=== PATIENT | male | born 1965 | race Caucasian/White ===

== ENCOUNTER → 2017-05-11 | Outpatient (REF) | payer OTHER ==
[~2017-05-11] MED LIST: CLOT10TR MT; LIPI20TA PO; METF500T13 PO
[2017-05-11 11:59] LABS: BASO # 0.1 K/mm3 (0.0-0.2); BASO % 1.1 % (0.0-1.0); EOS # 0.2 K/mm3 (0.0-0.50); EOS % 3.5 % (0.0-3.0); LARGE UNSTAINED CELL # 0.1 K/mm3 (0.0-0.4); LARGE UNSTAINED CELL % 2.3 % (0.0-4.0); LYMPH # 2.2 K/mm3 (1.5-4.5); MEAN CORPUSCULAR HEMOGLOBIN 30.7 pg (27.0-33.0); MEAN CORPUSCULAR HGB CONC 36.2 g/dl (32.0-36.5); MEAN CORPUSCULAR VOLUME 84.9 fl (80.0-96.0); MONO # 0.3 K/mm3 (0.0-0.8); MONO % 4.9 % (0.0-5.0); NEUTROPHILS # 3.2 K/mm3 (1.8-7.7); NEUTROPHILS % 52.3 % (36.0-66.0); PLATELET COUNT, AUTOMATED 177 k/mm3 (150-450); WHITE BLOOD COUNT 6.1 K/mm3 (4.0-10.0)
[2017-05-11 12:28] LABS: ALBUMIN 3.5 GM/DL (3.2-5.2); ALBUMIN/GLOBULIN RATIO 1.09 (1.00-1.93); ALKALINE PHOSPHATASE 79 U/L (45-117); ALT/SGPT 62 U/L (12-78); ANION GAP 9 MEQ/L (8-16); AST/SGOT 26 U/L (15-37); BILIRUBIN,TOTAL 0.3 MG/DL (0.2-1.0); BLOOD UREA NITROGEN 10 MG/DL (7-18); CALCIUM LEVEL 8.1 MG/DL (8.5-10.1); CARBON DIOXIDE LEVEL 27 MEQ/L (21-32); CHLORIDE LEVEL 106 MEQ/L (98-107); CHOLESTEROL LEVEL 196 MG/DL (<200); CREATININE FOR GFR 0.93 MG/DL (0.70-1.30); FREE T4 1.05 NG/DL (0.76-1.46); GLOMERULAR FILTRATION RATE > 60.0 (>56); GLUCOSE, FASTING 129 MG/DL (70-105); POTASSIUM SERUM 4.2 MEQ/L (3.5-5.1); SODIUM LEVEL 142 MEQ/L (136-145); TOTAL PROTEIN 6.7 GM/DL (6.4-8.2); TRIGLYCERIDES LEVEL 104 MG/DL (<150)
== END ==
LOC: M SFHCPLAZ 08:00
PROVIDERS: ATTEND Nurse Practitioner Family
DX: Z00.00 Encounter for general adult medical examination without abnormal findings (principal); Z11.3 Encounter for screening for infections with a predominantly sexual mode of transmission; E66.9 Obesity, unspecified; E78.5 Hyperlipidemia, unspecified; B37.42 Candidal balanitis

== ENCOUNTER → 2017-07-02 | Outpatient (REF) | payer OTHER ==
[2017-07-02 13:03] LABS: ALBUMIN 3.6 GM/DL (3.2-5.2); ALBUMIN/GLOBULIN RATIO 1.09 (1.00-1.93); ALKALINE PHOSPHATASE 92 U/L (45-117); ALT/SGPT 83 U/L (12-78); ANION GAP 6 MEQ/L (8-16); AST/SGOT 30 U/L (7-37); BILIRUBIN,TOTAL 0.4 MG/DL (0.2-1.0); BLOOD UREA NITROGEN 8 MG/DL (7-18); CARBON DIOXIDE LEVEL 30 MEQ/L (21-32); CHLORIDE LEVEL 105 MEQ/L (98-107); CREATININE FOR GFR 0.88 MG/DL (0.70-1.30); GLOMERULAR FILTRATION RATE > 60.0 (>56); GLUCOSE, FASTING 110 MG/DL (70-105); POTASSIUM SERUM 4.3 MEQ/L (3.5-5.1); SODIUM LEVEL 141 MEQ/L (136-145); TOTAL PROTEIN 6.9 GM/DL (6.4-8.2)
== END ==
LOC: M SFHCPLAZ 08:56
PROVIDERS: ATTEND Nurse Practitioner Family
DX: E78.5 Hyperlipidemia, unspecified (principal); E11.9 Type 2 diabetes mellitus without complications

== ENCOUNTER → 2017-10-01 | Outpatient (REF) | payer OTHER ==
[2017-10-01 12:46] LABS: ESTIMATED AVERAGE GLUCOSE 143 MG/DL (60-110); HEMOGLOBIN A1c 6.6 %
[2017-10-01 12:56] LABS: ALBUMIN 3.4 GM/DL (3.2-5.2); ALKALINE PHOSPHATASE 91 U/L (45-117); ALT/SGPT 56 U/L (12-78); ANION GAP 7 MEQ/L (8-16); AST/SGOT 29 U/L (7-37); BILIRUBIN,TOTAL 0.5 MG/DL (0.2-1.0); BLOOD UREA NITROGEN 10 MG/DL (7-18); CALCIUM LEVEL 8.5 MG/DL (8.5-10.1); CARBON DIOXIDE LEVEL 29 MEQ/L (21-32); CHLORIDE LEVEL 104 MEQ/L (98-107); CREATININE FOR GFR 0.98 MG/DL (0.70-1.30); FREE T4 0.93 NG/DL (0.76-1.46); GLOMERULAR FILTRATION RATE > 60.0 (>56); GLUCOSE, FASTING 119 MG/DL (70-100); POTASSIUM SERUM 4.1 MEQ/L (3.5-5.1); SODIUM LEVEL 140 MEQ/L (136-145); TOTAL PROTEIN 6.5 GM/DL (6.4-8.2)
[2017-10-01 13:12] LABS: MALB URINE SIEMENS 8.7 MG/L; MAU/CREAT RATIO 5.2 MCG/MG (0.0-30.0)
[2017-10-03 00:06] LABS: TESTOSTERONE FREE (DIRECT) 8.4 pg/mL (7.2-24.0)
== END ==
LOC: M SFHCPLAZ 08:48
DX: E11.9 Type 2 diabetes mellitus without complications (principal)

== ENCOUNTER → 2018-04-17 | Outpatient (REF) | payer OTHER ==
[2018-04-17 12:49] LABS: ALBUMIN 3.5 GM/DL (3.2-5.2); ALBUMIN/GLOBULIN RATIO 1.06 (1.00-1.93); ALKALINE PHOSPHATASE 90 U/L (45-117); ALT/SGPT 54 U/L (12-78); ANION GAP 10 MEQ/L (8-16); AST/SGOT 29 U/L (7-37); BILIRUBIN,TOTAL 0.4 MG/DL (0.2-1.0); BLOOD UREA NITROGEN 10 MG/DL (7-18); CALCIUM LEVEL 8.6 MG/DL (8.5-10.1); CARBON DIOXIDE LEVEL 27 MEQ/L (21-32); CHLORIDE LEVEL 105 MEQ/L (98-107); CREATININE FOR GFR 0.86 MG/DL (0.70-1.30); GLOMERULAR FILTRATION RATE > 60.0 (>56); GLUCOSE, FASTING 126 MG/DL (70-100); POTASSIUM SERUM 4.3 MEQ/L (3.5-5.1); SODIUM LEVEL 142 MEQ/L (136-145); TOTAL PROTEIN 6.8 GM/DL (6.4-8.2)
[2018-04-17 16:27] LABS: ESTIMATED AVERAGE GLUCOSE 151 MG/DL (60-110); HEMOGLOBIN A1c 6.9 %
== END ==
LOC: M SFHCPLAZ 09:28
DX: E11.9 Type 2 diabetes mellitus without complications (principal); I10 Essential (primary) hypertension
CPT/HCPCS: 80053

== ENCOUNTER → 2018-07-19 | Outpatient (REF) | payer OTHER ==
[2018-07-19 11:05] LABS: ALBUMIN 3.4 GM/DL (3.2-5.2); ALBUMIN/GLOBULIN RATIO 1.06 (1.00-1.93); ALKALINE PHOSPHATASE 93 U/L (45-117); ALT/SGPT 55 U/L (12-78); ANION GAP 9 MEQ/L (8-16); AST/SGOT 23 U/L (7-37); BILIRUBIN,TOTAL 0.6 MG/DL (0.2-1.0); BLOOD UREA NITROGEN 11 MG/DL (7-18); CALCIUM LEVEL 8.2 MG/DL (8.5-10.1); CARBON DIOXIDE LEVEL 28 MEQ/L (21-32); CHLORIDE LEVEL 106 MEQ/L (98-107); CHOLESTEROL LEVEL 154 MG/DL (<200); CHOLESTEROL RISK RATIO 5.133 (<5); CREATININE FOR GFR 1.01 MG/DL (0.70-1.30); GLOMERULAR FILTRATION RATE > 60.0 (>56); GLUCOSE, FASTING 135 MG/DL (70-100); HDL CHOLESTEROL 30 MG/DL (>40); LDL CHOLESTEROL 88 MG/DL (<100); NON-HDL-C 124 MG/DL; POTASSIUM SERUM 4.4 MEQ/L (3.5-5.1); SODIUM LEVEL 143 MEQ/L (136-145); TOTAL PROTEIN 6.6 GM/DL (6.4-8.2); TRIGLYCERIDES LEVEL 181 MG/DL (<150)
[2018-07-19 11:36] LABS: CREATININE, URINE 31.1 MG/DL; MALB URINE SIEMENS < 5.0 MG/L
[2018-07-19 13:18] LABS: ESTIMATED AVERAGE GLUCOSE 143 MG/DL (60-110); HEMOGLOBIN A1c 6.6 %
== END ==
LOC: M SFHCPLAZ 08:56
DX: E11.9 Type 2 diabetes mellitus without complications (principal); E78.5 Hyperlipidemia, unspecified
CPT/HCPCS: 80053

== ENCOUNTER → 2018-10-23 | Outpatient (REF) | payer OTHER ==
[2018-10-23 12:21] LABS: ALBUMIN 3.7 GM/DL (3.2-5.2); ALT/SGPT 45 U/L (12-78); BILIRUBIN,TOTAL 0.4 MG/DL (0.2-1.0); BLOOD UREA NITROGEN 10 MG/DL (7-18); CARBON DIOXIDE LEVEL 28 MEQ/L (21-32); CHLORIDE LEVEL 106 MEQ/L (98-107); CREATININE FOR GFR 0.85 MG/DL (0.70-1.30); GLOMERULAR FILTRATION RATE > 60.0 (>56); GLUCOSE, FASTING 117 MG/DL (70-100); POTASSIUM SERUM 3.8 MEQ/L (3.5-5.1); SODIUM LEVEL 141 MEQ/L (136-145); TOTAL PROTEIN 6.7 GM/DL (6.4-8.2)
[2018-10-23 13:21] LABS: HEMOGLOBIN A1c 6.7 %
== END ==
LOC: M SFHCPLAZ 09:14
PROVIDERS: ATTEND Nurse Practitioner Family
DX: E11.9 Type 2 diabetes mellitus without complications (principal); E78.5 Hyperlipidemia, unspecified

== ENCOUNTER → 2018-10-29 | Outpatient (REF) | payer OTHER ==
[2018-10-29 11:23] LABS: BASO # 0.1 10^3/uL (0.0-0.2); BASO % 0.8 % (0.0-1.0); EOS # 0.2 10^3/uL (0.0-0.50); EOS % 2.6 % (0.0-3.0); HEMATOCRIT 43.2 % (42.0-52.0); HEMOGLOBIN 14.6 g/dl (13.5-17.5); LYMPH # 2.9 10^3/uL (1.5-4.5); LYMPH % 39.6 % (24.0-44.0); MEAN CORPUSCULAR HEMOGLOBIN 28.9 pg (27.0-33.0); MEAN CORPUSCULAR HGB CONC 33.8 g/dl (32.0-36.5); MEAN CORPUSCULAR VOLUME 85.4 fl (80.0-96.0); MONO # 0.4 10^3/uL (0.0-0.8); MONO % 5.7 % (0.0-5.0); NEUTROPHILS # 3.7 10^3/uL (1.8-7.7); PLATELET COUNT, AUTOMATED 189 10^3/uL (150-450); RED BLOOD COUNT 5.06 10^6/uL (4.30-6.10); WHITE BLOOD COUNT 7.2 10^3/uL (4.0-10.0)
[2018-10-29 11:58] LABS: ERYTHROCYTE SEDIMENTATION RATE 9 mm/hr (0-20)
[2018-10-29 14:10] LABS: HEMOGLOBIN A1c 6.6 %
[2018-10-29 15:08] LABS: ALBUMIN 3.7 GM/DL (3.2-5.2); ALT/SGPT 59 U/L (12-78); BILIRUBIN,TOTAL 0.4 MG/DL (0.2-1.0); BLOOD UREA NITROGEN 11 MG/DL (7-18); CALCIUM LEVEL 8.5 MG/DL (8.5-10.1); CARBON DIOXIDE LEVEL 29 MEQ/L (21-32); CHLORIDE LEVEL 108 MEQ/L (98-107); CREATININE FOR GFR 0.91 MG/DL (0.70-1.30); FOLATE 12.8 NG/ML; GLOMERULAR FILTRATION RATE > 60.0 (>56); GLUCOSE, FASTING 112 MG/DL (70-100); POTASSIUM SERUM 3.9 MEQ/L (3.5-5.1); RHEUMATOID FACTOR QUANT < 10.0 IU/ML (<15.0); SODIUM LEVEL 142 MEQ/L (136-145); TOTAL PROTEIN 6.8 GM/DL (6.4-8.2); VITAMIN B12 LEVEL 695 PG/ML
[2018-10-31 11:38] LABS: ALBUMIN 3.92 GM/DL (3.29-5.55); ALBUMIN % 57.7 % (55.8-66.1); ALPHA-1-GLOBULIN % 4.1 % (2.9-4.9); ALPHA-1-GLOBULINS 0.28 GM/DL (0.17-0.41); ALPHA-2-GLOBULINS 0.79 GM/DL (0.42-0.99); ALPHA-2-GLOBULINS % 11.6 % (7.1-11.8); BETA-1-GLOBULINS 0.49 GM/DL (0.28-0.60); BETA-1-GLOBULINS % 7.2 % (4.7-7.2); BETA-2-GLOBULINS 0.43 GM/DL (0.19-0.55)
[2018-10-31 11:39] LABS: BETA-2-GLOBULINS % 6.3 % (3.2-6.5); GAMMA GLOBULIN % 13.1 % (11.1-18.8); GAMMA GLOBULINS 0.89 GM/DL (0.65-1.58)
[2018-11-01 00:10] LABS: ANCA-ATYPICAL <1:20 titer (Neg:<1:20); ANTI DOUBLE STRAND-DNA AB <1 IU/mL (0-9); ANTINUCLEAR ANTIBODIES DIRECT Negative (Negative); CYTOPLASMIC NEUTROP AB ANCA-C <1:20 titer (Neg:<1:20); PERINUCLEAR AB ANCA-P <1:20 titer (Neg:<1:20); SJOGREN'S ANTI SS-A <0.2 AI (0.0-0.9); SJOGREN'S ANTI SS-B <0.2 AI (0.0-0.9)
[2018-11-01 10:25] LABS: VITAMIN E(ALPHA TOCOPHEROL) 8.7 mg/L (7.0-25.1); VITAMIN E(GAMMA TOCOPHEROL) 1.4 mg/L (0.5-5.5)
[2018-11-02 14:37] LABS: VITAMIN B1 LEVEL WHOLE BLOOD 139.1 nmol/L (66.5-200.0); VITAMIN B6,PYRIDOXAL PHOSPHATE 5.3 ug/L (5.3-46.7)
== END ==
LOC: M LABDRAW1 10:44
PROVIDERS: ATTEND Psychiatry & Neurology Neurology
DX: G62.9 Polyneuropathy, unspecified (principal)

== ENCOUNTER → 2019-03-21 | Outpatient (CLI) | payer BC, OTHER ==
--- NOTE | 2019-04-02 01:48 | ECWPNPC ---
PATIENT NAME: MANUEL HODGE : 1965 GENDER: MALE VISIT DATE: 03/21/2019 DISCHARGE DATE: 03/21/19 1148 VISIT LOCKED DATE TIME: PHYSICIAN: JOHNATHAN SHIPLEY MD RESOURCE: JOHNATHAN SHIPLEY MD REASON FOR APPOINTMENT 1. LS/CS SPONDYLOSIS HISTORY OF PRESENT ILLNESS PAIN SCREENING: PATIENT HAS A COMPLAINT OF ACUTE OR CHRONIC PAIN :YES 53 YEAR OLD MALE PATIENT WITH A HISTORY OF CHRONIC LOW BACK, RIGHT HIP, AND RIGHT LEG PAIN. THE PATIENT DESCRIBES THE PAIN ACHING AND CONTINUOUS WITH A PAIN SCORE OF 1-6/10 DEPENDING ON PHYSICAL ACTIVITY. THE PATIENT STATES HIS PAIN BEGINS IN HIS LOW BACK AND RADIATES DOWN MAINLY HIS RIGHT BUTTOCK AND DOWN THE BACK OF HIS RIGHT LEG. THE PATIENT SAYS HE EXPERIENCES NUMBNESS IN HIS RIGHT HIP WHEN HE TAKES SHOWERS. THE PATIENT STATES HE HAS BEEN EXPERIENCING THIS PAIN FOR MANY YEARS. THE PATIENT SAYS HIS PAIN INCREASES WITH ACTIVITIES OFTEN. PATIENT DENIES UNEXPLAINABLE WEIGHT LOSS, FEVER, CHILLS, NEW CHANGES ON HIS URINARY OR BOWEL CONTROL. FALL RISK SCREENING: SCREENING :NO FALLS REPORTED IN THE LAST YEAR CURRENT MEDICATIONS TAKING IBUPROFEN 800 MG TABLET 1 TABLET WITH FOOD OR MILK NEEDED ORALLY THREE TIMES A DAY PRN NOT-TAKING GLUCOMETER _ DIRECTED DX: E11.9 MONITOR BGS IN MORNING NOT-TAKING BLOOD GLUCOSE TEST STRIP - STRIP DIRECTED IN VITRO DAILY. DX: E11.9 NOT-TAKING LANCETS - MISCELLANEOUS DIRECTED _ DAILY. DX: E11.9 NOT-TAKING METFORMIN HCL 1000 MG TABLET 1 TABLET WITH MEALS ORALLY TWICE DAILY NOT-TAKING ASPIRIN 81 MG TABLET DELAYED RELEASE 1 TABLET ORALLY ONCE A DAY NOT-TAKING LOSARTAN POTASSIUM 25 MG TABLET 1 TABLET ORALLY ONCE A DAY NOT-TAKING LIPITOR 40 MG TABLET 1 TABLET ORALLY ONCE A DAY NOT-TAKING LIPITOR 40 MG TABLET TAKE ONE TABLET BY MOUTH EVERY DAY MEDICATION LIST REVIEWED AND RECONCILED WITH THE PATIENT PAST MEDICAL HISTORY HYPERLIPIDEMIA OBESITY HYPERTENSION CHRONIC BACK/NECK PAIN ZULLY W/ CPAP ALLERGIES N.K.D.A. 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 2 SON(S) , 1 DAUGHTER(S) - HEALTHY. FATHER - LUNG CANCER. SOCIAL HISTORY GENERAL: TOBACCO USE ARE YOU A:FORMER SMOKER CHEWS TOBACCO HOW LONG HAS IT BEEN SINCE YOU LAST SMOKED?1-5 YEARS HIV / HEP-C SCREENING HIV TEST OFFERED TO PATIENT:YES DATE OFFERED:03/27/2017 TEST ACCEPTED:NO HEP-C TEST OFFERED TO PATIENT:NO REASON:PATIENT DECLINED OTHERS AT HOME: SPOUSE, CHILDREN. EDUCATION LEVEL OF EDUCATION:FINISHED HIGH SCHOOL DIET: REGULAR. LANGUAGE LANGUAGES SPOKEN:POLISH DOMESTIC VIOLENCE NONE. NEW PATIENT PAIN DIARY PATIENT DESCRIBES PAIN :ACHING, IT COMES AND GOES FROM 0-10, WHAT LEVEL IS YOUR PAIN TODAY?1 PRECIPITATING FACTORS STANDING, LAYING ALLEVIATING FACTORS IBUPROFEN BMI CARE GOAL FOLLOW-UP ABOVE NORMAL BMI FOLLOW-UPDIETARY MANAGEMENT EDUCATION, GUIDANCE, AND COUNSELING -37.6 RECREATIONAL DRUG USE DRUG USE?NO EXERCISE: NONE. LEARNING BARRIERS / SPECIAL NEEDS CHANGE FROM LAST VISIT?YES TRANSFER BARRIERS TO LEARNING?NO HEARING IMPAIRED?YES :HEARING AIDES FOR HIGH PITCH VISION IMPAIRED?YES READING :CORRECTIVE LENSES COGNITIVELY IMPAIRED?NO READINESS TO LEARN?YES LEARNING PREFERENCES?NO LEARNING CAPABILITIES PRESENT?YES EMOTIONAL BARRIERS?NO SPECIAL DEVICES?NO MILLER HELPER NEEDED?NO PAIN CLINIC PFS, CLERGY, PUBLIC HEALTH REFERRALS HAS THE PATIENT BEEN EDUCATED REGARDING HIS/HER PLAN OF CARE?YES HAS THE PATIENT BEEN EDUCATED REGARDING PAIN, THE RISK FOR PAIN, THE IMPORTANCE OF EFFECTIVE PAIN MANAGEMENT, AND THE PAIN ASSESSMENT PROCESS?YES LATEX QUESTIONNAIRE LATEX ALLERGY : HAVE YOU EVER DEVELOPED ANY TYPE OF REACTION AFTER HANDLING LATEX PRODUCTS SUCH RUBBER GLOVES, CONDOMS, DIAPHRAGMS, BALLOONS, SOCKS, OR UNDERWEAR?NO LATEX ALLERGY : HAVE YOU EVER DEVELOPED ANY TYPE OF REACTION DURING OR AFTER DENTAL APPOINTMENT, VAGINAL/RECTAL EXAMINATION, SURGICAL PROCEDURE, OR ANY OTHER EXPOSURE?NO LATEX RISK : HAVE YOU EVER HAD ANY DIFFICULTY BREATHING OR HIVES AFTER EATING OR HANDLING ANY FRUITS, OR VEGETABLES; SUCH KIWI, BANANAS, STONE FRUITS, OR CHESTNUTSNO LATEX RISK : DO YOU HAVE A PREVIOUS PERSONAL HISTORY OF MORE THAN NINE SURGERIES, SPINA BIFIDA, OR REPEATED CATHERIZATIONS? NO LATEX RISK : ARE YOU FREQUENTLY EXPOSED TO LATEX PRODUCTS IN YOUR OCCUPATION?YES DATE ASKED : 03/21/2019 CAFFEINE >5/DAY. ADVANCE DIRECTIVE ADVANCE DIRECTIVE DISCUSSED WITH PATIENT:YES PATIENT DECLINES HCP INFORMATION. LUTHERAN [id number] OTHER MARITAL STATUS: . ALCOHOL SCREENING DID YOU HAVE A DRINK CONTAINING ALCOHOL IN THE PAST YEAR?YES HOW OFTEN DID YOU HAVE SIX OR MORE DRINKS ON ONE OCCASION IN THE PAST YEAR?WEEKLY (3 POINTS) HOW MANY DRINKS DID YOU HAVE ON A TYPICAL DAY WHEN YOU WERE DRINKING IN THE PAST YEAR?5 OR 6 (2 POINTS) HOW OFTEN DID YOU HAVE A DRINK CONTAINING ALCOHOL IN THE PAST YEAR?TWO TO THREE TIMES PER WEEK (3 POINTS) POINTS8 INTERPRETATIONPOSITIVE OCCUPATION: CORRECTIONS. SEXUAL HX HAD SEX IN THE LAST 12 MONTHS (VAGINAL, ORAL, OR ANAL)?YES WITHWOMEN ONLY PREVENTION STRATEGIES DISCUSSED:OTHER USE PROTECTION?NO HAVE YOU EVER HAD AN STD?NO REVIEWED WITH PATIENT 03/21/19 1059 JS. HOSPITALIZATION/MAJOR DIAGNOSTIC PROCEDURE DENIES PAST HOSPITALIZATION REVIEW OF SYSTEMS REVIEWED BY: PROVIDER: JOHNATHAN SHIPLEY MD . CONSTITUTIONAL: ANY CHANGE IN YOUR MEDICAL CONDITION? NO . CHILLS NO . FEVER NO . INFECTION: DO YOU HAVE NEW INFECTIONS? NO . DO YOU HAVE HISTORY OF MRSA? NO . MUSCULOSKELETAL: ANY NEW PATTERNS OF PAIN OR NUMBNESS? NO . SYTEMIC LUPUS NO . GASTROENTEROLOGY: ANY NEW CHANGE IN BOWEL CONTROL? NO . BARRETTS ESOPHAGUS NO . CIRRHOSIS NO . HEPATITIS NO . LIVER FAILURE NO . ACID REFLUX NO . UNEXPLAINED WEIGHT LOSS NO . GENITOURINARY: ANY NEW CHANGE IN BLADDER CONTROL? NO . IS THERE A CHANCE YOU COULD BE ? NO . HEMATOLOGY/LYMPH: DO YOU TAKE ANY BLOOD THINNERS? (FOR EXAMPLE- COUMADIN, PLAVIX, AGGRENOX, PLATEL, PRADAXA, OR XARELTO) NO . WHEN WAS YOUR LAST DOSE? DATE: TIME: . LOW PLATELET COUNT NO . SICKLE CELL DISEASE NO . VON WILLIEBRANDS NO . FACTOR V LEIDEN NO . THALLASEMIA NO . ANEMIA NO . EASY BRUISING NO . NEUROLOGY: HAVE YOU FALLEN IN THE PAST 12 MONTHS? YES, STATES HE SLIPPED AND FELL DOWN STAIRS, HE HAD WET FEET ON WOODEN STAIRS. STATES NO INJURIES OTHER THAN A BAD BRUISE TO HIS LEFT ARM AND LEFT BUTTOCKS, STATES NO ED VISIT . ANY NEW EXTREMITY NUMBNESS OR WEAKNESS? NO . HEAD INJURY NO . DEMENTIA NO . CEREBRAL PALSY NO . MULTIPLE SCLEROSIS NO . DIZZINESS NO . HEADACHE NO . STROKES NO . VERTIGO NO . CARDIOLOGY: DO YOU HAVE A PACEMAKER OR DEFIBRILLATOR? NO . ANGINA NO . HEART ATTACK NO . HEART SURGERY NO . CONGESTIVE HEART FAILURE/FLUID OVERLOAD NO . CHEST PAIN NO . HIGH BLOOD PRESSURE NO . IRREGULAR HEART BEAT NO . RESPIRATORY: HAVE YOU BEEN SICK IN THE PAST WEEK? NO . FEVER NO . FLU LIKE SYMPTOMS? NO . CPAP YES . BYPAP NO . ASTHMA NO . EMPHYSEMA NO . CHRONIC LUNG DISEASES NO . SHORTNESS OF BREATH ON EXERTION NO . COUGH NO . SNORING YES . INTEGUMENTARY: DO YOU HAVE ANY RASHES OR OPEN SORES? NO . ALLERGIC/IMMUNO: ARE YOU ALLERGIC TO IV DYE? NO . ANY NEW ALLERGIES? NO . PSYCHIATRIC: DO YOU HAVE THOUGHTS OF HURTING YOURSELF OR SOMEONE ELSE? NO . ARE YOU ABUSED, NEGLECTED, OR IN AN UNSAFE ENVIRONMENT? NO . ENDOCRINOLOGY: ARE YOU DIABETIC? NO . THYROID DISORDER NO . OTHER: DO YOU NEED ANY PRESCRIPTIONS? NO . IF YES, PLEASE LIST: ____ . ANY NEW PROBLEMS WITH YOUR MEDICATIONS? NO . WHEN DID YOU LAST EAT? ____ . WHEN DID YOU LAST DRINK? ____ . WHAT DID YOU LAST DRINK? ____ . NAME OF PERSON DRIVING YOU HOME? ____ . DO YOU HAVE ANY OTHER QUESTIONS OR CONCERNS NO . VITAL SIGNS WT 308.2 LBS, HT 75 IN, BMI 38.52 INDEX, BP 145/96 MM HG, HR 67 /MIN, RR 18 /MIN, TEMP 97.6 F, OXYGEN SAT % 97%, SAFE IN ENV? (Y/N) YES, NA INITIALS AW 1028, REVIEWED BY: JSDISCUSSED ELEVATED BP WITH PATIENT, STATES HE IS SUPPOSED TO TAKE BP MEDICATION BUT STOPPED TAKING ALL OF HIS MEDICATIONS ABOUT A MONTH AGO. DISCUSSED THE IMPORTANCE OF TAKING HIS BP MEDICATION AND INSTRUCTED HIM TO MAKE AN APPOINTMENT WITH HIS PCP TO DISCUSS THIS. 03/21/19 1101 JS. EXAMINATION GENERAL EXAMINATION: PATIENT IS ALERT O X 3 AND COOPERATIVE. LUNGS CLEAR, TO AUSCULTATION. HEART: NO MURMURS OR GALLOPS; FACIAL CRANIAL NERVES ARE GROSSLY NORMAL. GOOD SYMMETRY OF FACIAL MUSCLE MOVEMENT. NORMAL VISUAL NI. TENDERNESS IN THE LOW BACK. WALK IS ADEQUATE, BUT WITH SOME MINOR LIMPING FROM THE RIGHT LEG. LEGS STRENGTH ARE ADEQUATE. STRAIGHT LEG RAISE OF THE RIGHT LEG IS POSITIVE AT 50 DEGREES. MRI OF THE LUMBAR SPINE DONE ON 11/22/2018 SHOWS DISC EXTRUSION AT L5-S1, BULGING DISC AT L4-L5, AND SPINAL STENOSIS. ASSESSMENTS INTERVERTEBRAL DISC DISORDER WITH RADICULOPATHY OF LUMBAR REGION - M51.16 (PRIMARY) INTERVERTEBRAL DISC DISORDER WITH RADICULOPATHY OF LUMBOSACRAL REGION - M51.17 TREATMENT INTERVERTEBRAL DISC DISORDER WITH RADICULOPATHY OF LUMBAR REGION CLINICAL NOTES: WE DISCUSSED SEVERAL ISSUES WITH MR. HODGE'S PAIN MANAGEMENT CASE. DUE TO THE LUMBAR RADICULOPATHY, I WOULD LIKE TO MOVE FORWARD WITH A LUMBAR EPIDURAL STEROID INJECTION AT THIS TIME. WE DISCUSSED THE BENEFITS, RISKS, AND ALTERNATIVES OF THE INJECTION AND THE PATIENT WOULD LIKE TO PROCEED. THE PATIENT WILL FOLLOW UP WITH THE NURSE PRACTITIONER IN 2 MONTHS. INSTRUCTIONS WERE GIVEN, QUESTIONS WERE ANSWERED, PATIENT REPORTS UNDERSTANDING AND AGREES WITH THE PLAN. I, JOSE MORALES, DOCUMENTED THE ABOVE INFORMATION ACTING A SCRIBE FOR DR. SHIPLEY. I HAVE REVIEWED THE ABOVE DOCUMENT, WRITTEN BY JOSE BUCHANAN AND I VERIFY THAT IT IS ACCURATE. DEAR DR. SUKUMAR CERRATO M.D.: THANK YOU FOR YOUR KIND REFERRAL OF MANUEL HODGE II. IF YOU WANT TO DISCUSS HIS CASE WITH ME PLEASE CALL ME AT THE PAIN CENTER AT [phone]. SINCERELY, JOHNATHAN SHIPLEY MD PAIN MEDICINE . PREVENTIVE MEDICINE PAIN CLINIC TEACHING: PROCEDURE TEACHING PRINTED AND REVIEWED INFORMATION ON LUMBAR EPIDURAL STEROID INJECTION WITH PATIENT. ALSO REVIEWED PRE-PROCEDURE INSTRUCTIONS. PATIENT VERBALIZED AN UNDERSTANDING. BRADY LIANG 03/21/2019 11:47:48 AM > . PROCEDURE CODES FA211 ESTABILISHED PATIENT [facility] FACILITY CHARGE [id number] CURRENT MEDS W/DOSAGES DOCUMENTED G8730 PAIN ASSESS POS TOOL F/U PLAN DOC DISPOSITION & COMMUNICATION FOLLOW UP 2 MONTHS (REASON: ROSY, F/U WITH CORRECTIONAL CASE MANAGER) ELECTRONICALLY SIGNED BY JOHNATHAN SHIPLEY MD, MD ON 04/01/2019 AT 01:32 PM EDT DISCLAIMER : THIS IS A VISIT SUMMARY EXTRACTED FROM THE [facility] CHART. IT IS NOT A COPY OF THE [facility] PROGRESS NOTE. MTDD
== END ==
LOC: M PAIN 10:15
PROVIDERS: ATTEND Anesthesiology
DX: M51.16 Intervertebral disc disorders with radiculopathy, lumbar region (principal); M51.17 Intervertebral disc disorders with radiculopathy, lumbosacral region; G89.29 Other chronic pain; E78.5 Hyperlipidemia, unspecified; I10 Essential (primary) hypertension; G47.33 Obstructive sleep apnea (adult) (pediatric); F17.220 Nicotine dependence, chewing tobacco, uncomplicated; Z79.899 Other long term (current) drug therapy

== ENCOUNTER → 2019-05-14 | Outpatient (CLI) | payer BC, OTHER ==
[~2019-05-14] MED LIST changes: +ISOVUE-M 300 61% 15ML VIAL (Q9967) As Ordered ONE; +LIDOCAINE 1% SDV INJ 30 ML VIAL As Ordered ONE; +diazePAM 5 MG TAB As Ordered ONE; +methylPREDNISolone SUSP 40 MG/ML (DEPO-medrol) VIAL (J1030) As Ordered ONE; +oxyCODONE 5MG TAB As Ordered ONE
--- NOTE | 2019-05-14 13:38 | REP ---
C-ARM VIEWS LUMBAR SPINE: CLINICAL HISTORY: Pain. Four C-arm views of the lumbar spine performed during epidural injection by Dr. Mireles. Needle is seen at the L5 level. A small amount of contrast is injected. 14 seconds fluoroscopy time utilized. Electronically Signed by Bryan Dominguez MD 05/14/2019 03:21 P
--- NOTE | 2019-05-26 00:01 | ECWPNPC ---
PATIENT NAME: MANUEL HODGE : 1965 GENDER: MALE VISIT DATE: 05/14/2019 DISCHARGE DATE: 05/14/19 1159 VISIT LOCKED DATE TIME: PHYSICIAN: JOHNATHAN SHIPLEY MD RESOURCE: JOHNATHAN SHIPLEY MD REASON FOR APPOINTMENT 1. LESI HISTORY OF PRESENT ILLNESS HISTORY OF PRESENT ILLNESS: PAIN THE PATIENT DESCRIBES THE PAIN... FALL RISK SCREENING: SCREENING :NO FALLS REPORTED IN THE LAST YEAR CURRENT MEDICATIONS TAKING BLOOD GLUCOSE TEST STRIP - STRIP DIRECTED IN VITRO DAILY. DX: E11.9 TAKING LANCETS - MISCELLANEOUS DIRECTED _ DAILY. DX: E11.9 TAKING METFORMIN HCL 1000 MG TABLET 1 TABLET WITH MEALS ORALLY TWICE DAILY, NOTES: 05-13-19 TAKING ASPIRIN 81 MG TABLET DELAYED RELEASE 1 TABLET ORALLY ONCE A DAY TAKING LOSARTAN POTASSIUM 25 MG TABLET 1 TABLET ORALLY ONCE A DAY NOT-TAKING LIPITOR 40 MG TABLET 1 TABLET ORALLY ONCE A DAY UNKNOWN IBUPROFEN 800 MG TABLET 1 TABLET WITH FOOD OR MILK NEEDED ORALLY THREE TIMES A DAY PRN UNKNOWN GLUCOMETER _ DIRECTED DX: E11.9 MONITOR BGS IN MORNING UNKNOWN LIPITOR 40 MG TABLET TAKE ONE TABLET BY MOUTH EVERY DAY MEDICATION LIST REVIEWED AND RECONCILED WITH THE PATIENT PAST MEDICAL HISTORY HYPERLIPIDEMIA OBESITY HYPERTENSION CHRONIC BACK/NECK PAIN ZULLY W/ CPAP ALLERGIES N.K.D.A. 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 2 SON(S) , 1 DAUGHTER(S) - HEALTHY. FATHER - LUNG CANCER. SOCIAL HISTORY GENERAL: TOBACCO USE ARE YOU A:FORMER SMOKER CHEWS TOBACCO HOW LONG HAS IT BEEN SINCE YOU LAST SMOKED?1-5 YEARS HIV / HEP-C SCREENING HIV TEST OFFERED TO PATIENT:YES DATE OFFERED:03/27/2017 TEST ACCEPTED:NO HEP-C TEST OFFERED TO PATIENT:NO REASON:PATIENT DECLINED OTHERS AT HOME: SPOUSE, CHILDREN. EDUCATION LEVEL OF EDUCATION:FINISHED HIGH SCHOOL DIET: REGULAR. LANGUAGE LANGUAGES SPOKEN:[place] DOMESTIC VIOLENCE NONE. NEW PATIENT PAIN DIARY PATIENT DESCRIBES PAIN :ACHING, IT COMES AND GOES FROM 0-10, WHAT LEVEL IS YOUR PAIN TODAY?1 PRECIPITATING FACTORS STANDING, LAYING ALLEVIATING FACTORS IBUPROFEN BMI CARE GOAL FOLLOW-UP ABOVE NORMAL BMI FOLLOW-UPDIETARY MANAGEMENT EDUCATION, GUIDANCE, AND COUNSELING -37.6 RECREATIONAL DRUG USE DRUG USE?NO EXERCISE: NONE. LEARNING BARRIERS / SPECIAL NEEDS CHANGE FROM LAST VISIT?YES TRANSFER BARRIERS TO LEARNING?NO HEARING IMPAIRED?YES VISION IMPAIRED?YES READING COGNITIVELY IMPAIRED?NO :HEARING AIDES FOR HIGH PITCH :CORRECTIVE LENSES READINESS TO LEARN?YES LEARNING PREFERENCES?NO LEARNING CAPABILITIES PRESENT?YES EMOTIONAL BARRIERS?NO SPECIAL DEVICES?NO DIRECTOR OF ACCOUNTS PAYABLE NEEDED?NO PAIN CLINIC PFS, CLERGY, PUBLIC HEALTH REFERRALS HAS THE PATIENT BEEN EDUCATED REGARDING HIS/HER PLAN OF CARE?YES HAS THE PATIENT BEEN EDUCATED REGARDING PAIN, THE RISK FOR PAIN, THE IMPORTANCE OF EFFECTIVE PAIN MANAGEMENT, AND THE PAIN ASSESSMENT PROCESS?YES LATEX QUESTIONNAIRE LATEX ALLERGY : HAVE YOU EVER DEVELOPED ANY TYPE OF REACTION AFTER HANDLING LATEX PRODUCTS SUCH RUBBER GLOVES, CONDOMS, DIAPHRAGMS, BALLOONS, SOCKS, OR UNDERWEAR?NO LATEX ALLERGY : HAVE YOU EVER DEVELOPED ANY TYPE OF REACTION DURING OR AFTER DENTAL APPOINTMENT, VAGINAL/RECTAL EXAMINATION, SURGICAL PROCEDURE, OR ANY OTHER EXPOSURE?NO DATE ASKED : 03/21/2019 LATEX RISK : HAVE YOU EVER HAD ANY DIFFICULTY BREATHING OR HIVES AFTER EATING OR HANDLING ANY FRUITS, OR VEGETABLES; SUCH KIWI, BANANAS, STONE FRUITS, OR CHESTNUTSNO LATEX RISK : DO YOU HAVE A PREVIOUS PERSONAL HISTORY OF MORE THAN NINE SURGERIES, SPINA BIFIDA, OR REPEATED CATHERIZATIONS? NO LATEX RISK : ARE YOU FREQUENTLY EXPOSED TO LATEX PRODUCTS IN YOUR OCCUPATION?YES CAFFEINE >5/DAY. ADVANCE DIRECTIVE ADVANCE DIRECTIVE DISCUSSED WITH PATIENT:YES PATIENT DECLINES HCP INFORMATION. JEWISH [id number] OTHER MARITAL STATUS: . ALCOHOL SCREENING DID YOU HAVE A DRINK CONTAINING ALCOHOL IN THE PAST YEAR?YES HOW OFTEN DID YOU HAVE SIX OR MORE DRINKS ON ONE OCCASION IN THE PAST YEAR?WEEKLY (3 POINTS) HOW MANY DRINKS DID YOU HAVE ON A TYPICAL DAY WHEN YOU WERE DRINKING IN THE PAST YEAR?5 OR 6 (2 POINTS) HOW OFTEN DID YOU HAVE A DRINK CONTAINING ALCOHOL IN THE PAST YEAR?TWO TO THREE TIMES PER WEEK (3 POINTS) POINTS8 INTERPRETATIONPOSITIVE OCCUPATION: CORRECTIONS. SEXUAL HX HAD SEX IN THE LAST 12 MONTHS (VAGINAL, ORAL, OR ANAL)?YES WITHWOMEN ONLY PREVENTION STRATEGIES DISCUSSED:OTHER USE PROTECTION?NO HAVE YOU EVER HAD AN STD?NO REVIEWED WITH PATIENT 03/21/19 1059 JS. HOSPITALIZATION/MAJOR DIAGNOSTIC PROCEDURE NO HOSPITALIZATION HISTORY. REVIEW OF SYSTEMS REVIEWED BY: PROVIDER: . CONSTITUTIONAL: ANY CHANGE IN YOUR MEDICAL CONDITION? NO . CHILLS NO . FEVER NO . INFECTION: DO YOU HAVE NEW INFECTIONS? NO . DO YOU HAVE HISTORY OF MRSA? NO . MUSCULOSKELETAL: ANY NEW PATTERNS OF PAIN OR NUMBNESS? NO . GASTROENTEROLOGY: ANY NEW CHANGE IN BOWEL CONTROL? NO . GENITOURINARY: ANY NEW CHANGE IN BLADDER CONTROL? NO . IS THERE A CHANCE YOU COULD BE ? NO . HEMATOLOGY/LYMPH: DO YOU TAKE ANY BLOOD THINNERS? (FOR EXAMPLE- COUMADIN, PLAVIX, AGGRENOX, PLATEL, PRADAXA, OR XARELTO) NO . WHEN WAS YOUR LAST DOSE? DATE: TIME: . NEUROLOGY: HAVE YOU FALLEN IN THE PAST 12 MONTHS? NO . ANY NEW EXTREMITY NUMBNESS OR WEAKNESS? NO . CARDIOLOGY: DO YOU HAVE A PACEMAKER OR DEFIBRILLATOR? NO . RESPIRATORY: HAVE YOU BEEN SICK IN THE PAST WEEK? NO . FEVER NO . FLU LIKE SYMPTOMS? NO . COUGH NO . INTEGUMENTARY: DO YOU HAVE ANY RASHES OR OPEN SORES? NO . ALLERGIC/IMMUNO: ARE YOU ALLERGIC TO IV DYE? NO . ANY NEW ALLERGIES? NO . PSYCHIATRIC: DO YOU HAVE THOUGHTS OF HURTING YOURSELF OR SOMEONE ELSE? NO . ARE YOU ABUSED, NEGLECTED, OR IN AN UNSAFE ENVIRONMENT? NO . ENDOCRINOLOGY: ARE YOU DIABETIC? NO . OTHER: DO YOU NEED ANY PRESCRIPTIONS? NO . IF YES, PLEASE LIST: ____ . ANY NEW PROBLEMS WITH YOUR MEDICATIONS? NO . WHEN DID YOU LAST EAT? ____05-14-19 0300 . WHEN DID YOU LAST DRINK? ____0600 . WHAT DID YOU LAST DRINK? ____WATER . NAME OF PERSON DRIVING YOU HOME? ___SAMANTHA . DO YOU HAVE ANY OTHER QUESTIONS OR CONCERNS NO . VITAL SIGNS WT 311.6 LBS, HT 75 IN, BMI 38.94 INDEX, BP 168/108 MM HG, HR 73 /MIN, RR 18 /MIN, TEMP 97.1 F, OXYGEN SAT % 98%, SAFE IN ENV? (Y/N) YES, NA INITIALS IA 09:17, REVIEWED BY: KG. ASSESSMENTS INTERVERTEBRAL DISC DISORDERS WITH RADICULOPATHY, LUMBOSACRAL REGION - M51.17 (PRIMARY) INTERVERTEBRAL DISC DISORDER WITH RADICULOPATHY OF LUMBAR REGION - M51.16 TREATMENT INTERVERTEBRAL DISC DISORDER WITH RADICULOPATHY OF LUMBAR REGION [facility] FLUORO GUIDE SPINE INJECTION (PAIN)[id number] PROCEDURES PRE PROCEDURE DIAGNOSIS LUMBOSACRAL DISC DISORDER WITH RADICULOPATHY POST PROCEDURE DIAGNOSIS LUMBOSACRAL DISC DISORDER WITH RADICULOPATHY PROCEDURE LUMBAR EPIDURAL STEROID INJECTION UNDER FLUOROSCOPIC GUIDANCE SURGEON DR. JOHNATHAN SHIPLEY SUPERVISOR COSTUMING NONE ANESTHESIA LOCAL PRE PROCEDURE NOTE THE PATIENT HAS A HISTORY OF CHRONIC LOW BACK PAIN. I EVALUATED THE PATIENT AND REVIEWED THE CHART. I WENT OVER THE RISKS, ALTERNATIVES, AND BENEFITS ASSOCIATED WITH THIS PROCEDURE. THE PATIENT WOULD LIKE TO PROCEED AND GIVES CONSENT TO PERFORM THE PROCEDURE. THE PATIENT DENIES UNEXPLAINABLE WEIGHT LOSS, FEVER, CHILLS, OR NEW CHANGES IN URINARY OR BOWEL CONTROL. DESCRIPTION OF PROCEDURE THE PATIENT WAS BROUGHT TO THE PROCEDURE ROOM AND PLACED IN THE PRONE POSITION. THE LUMBOSACRAL AREA WAS CLEANED WITH BETADINE SOLUTION AND DRAPED ASEPTICALLY. THE PROCEDURE WAS DONE UNDER STERILE CONDITIONS. I CHECKED LATERALITY AND THE LEVEL WHERE THE PROCEDURE WAS GOING TO BE PERFORMED WITH THE PATIENT AND THE SUPPORTING STAFF AT THE MOMENT OF THE TIME OUT IN THE PROCEDURE ROOM. UNDER FLUOROSCOPIC GUIDANCE, THE TARGET POINT WAS SELECTED AT THE INTERLAMINAR LEVEL OF L5-S1. LIDOCAINE WAS USED TO NUMB THE SKIN AND THE SUBCUTANEOUS TISSUE BELOW IT. EPIDURAL TUOHY NEEDLE, 17-GAUGE, WAS ADVANCED UNDER FLUOROSCOPIC GUIDANCE AND FOLLOWING PATIENT FEEDBACK UNTIL THE EPIDURAL SPACE WAS REACHED, 7 CM DEEP INTO THE SKIN BY THE LOSS OF RESISTANCE TECHNIQUE. ISOVUE M DYE 30%, 0.25 ML, WAS INJECTED SHOWING ADEQUATE SPREAD OF THE DYE. THEN, A SOLUTION OF 3 ML OF NORMAL SALINE WITH DEPO-MEDROL 60 MG WAS INJECTED SLOWLY FOLLOWING PATIENT FEEDBACK. THERE WAS NO EVIDENCE OF BLOOD, PARESTHESIA OR CEREBROSPINAL FLUID DURING THE PROCEDURE. THE PATIENT WAS SENT TO THE RECOVERY ROOM. THE PATIENT WAS MOVING THE EXTREMITIES AND DOING WELL. THERE WAS NO COMPLICATION DURING THE PROCEDURE. FLUOROSCOPY TIME WAS 14 SECONDS. POST PROCEDURE NOTE THE PATIENT WILL BE SEEN IN A FOLLOW UP IN THE NEXT FEW WEEKS. INSTRUCTIONS WERE GIVEN, QUESTIONS WERE ANSWERED, AND THE PATIENT EXPRESSED UNDERSTANDING AND AGREES WITH THE PLAN. I, JOSE MORALES, DOCUMENTED THE ABOVE INFORMATION ACTING A SCRIBE FOR DR. SHIPLEY. I HAVE REVIEWED THE ABOVE DOCUMENT, WRITTEN BY JOSE HEMRIC SCRIBE AND I VERIFY THAT IT IS ACCURATE. PROCEDURE CODES 15038 LUMBAR/SACRAL W/ IMAGING 6045F RADXPS IN END [id number] PXD DISPOSITION & COMMUNICATION FOLLOW UP 2 WEEKS ELECTRONICALLY SIGNED BY JOHNATHAN SHIPLEY MD, MD ON 05/25/2019 AT 12:05 PM EDT DISCLAIMER : THIS IS A VISIT SUMMARY EXTRACTED FROM THE [facility] [facility] CHART. IT IS NOT A COPY OF THE [facility] PROGRESS NOTE. MTDD
== END ==
LOC: M PAIN 09:30
PROVIDERS: ATTEND Anesthesiology
DX: M51.17 Intervertebral disc disorders with radiculopathy, lumbosacral region (principal); M51.16 Intervertebral disc disorders with radiculopathy, lumbar region; E78.5 Hyperlipidemia, unspecified; E66.9 Obesity, unspecified; Z68.38 Body mass index [BMI] 38.0-38.9, adult; I10 Essential (primary) hypertension; M54.2 Cervicalgia; G47.33 Obstructive sleep apnea (adult) (pediatric); F17.220 Nicotine dependence, chewing tobacco, uncomplicated; Z79.82 Long term (current) use of aspirin; Z79.84 Long term (current) use of oral hypoglycemic drugs; Z79.899 Other long term (current) drug therapy
CPT/HCPCS: 62323; J1030; Q9967

== ENCOUNTER → 2019-07-07 | Outpatient (REF) | payer OTHER ==
[~2019-07-07] MED LIST changes: -ISOVUE-M 300 61% 15ML VIAL (Q9967) As Ordered ONE; -LIDOCAINE 1% SDV INJ 30 ML VIAL As Ordered ONE; -diazePAM 5 MG TAB As Ordered ONE; -methylPREDNISolone SUSP 40 MG/ML (DEPO-medrol) VIAL (J1030) As Ordered ONE; -oxyCODONE 5MG TAB As Ordered ONE
[2019-07-07 11:05] LABS: HEMOGLOBIN A1c 6.7 %
[2019-07-07 11:13] LABS: CHOLESTEROL RISK RATIO 5.861 (<5)
[2019-07-07 11:25] LABS: MALB URINE SIEMENS 10.4 MG/L; MAU/CREAT RATIO 5.9 MCG/MG (0.0-30.0)
== END ==
LOC: M SFHCPLAZ 08:42
PROVIDERS: ATTEND Family Medicine
DX: E11.9 Type 2 diabetes mellitus without complications (principal)

== ENCOUNTER → 2019-11-07 | Outpatient (REF) | payer OTHER ==
[2019-11-07 10:38] LABS: BLOOD UREA NITROGEN 7 MG/DL (7-18); CALCIUM LEVEL 8.8 MG/DL (8.5-10.1); CARBON DIOXIDE LEVEL 28 MEQ/L (21-32); CHLORIDE LEVEL 107 MEQ/L (98-107); CREATININE FOR GFR 0.85 MG/DL (0.70-1.30); GLOMERULAR FILTRATION RATE > 60.0 (>56); GLUCOSE, FASTING 158 MG/DL (70-100); POTASSIUM SERUM 3.9 MEQ/L (3.5-5.1); SODIUM LEVEL 140 MEQ/L (136-145)
[2019-11-07 13:02] LABS: HEMOGLOBIN A1c 7.5 %
[2019-11-08 15:06] LABS: Lyme Disease IgG/IgM Antibodie <0.91 ISR (0.00-0.90); Lyme Disease IgM Ab Quantitati <0.80 index (0.00-0.79)
== END ==
LOC: M SFHCPLAZ 08:30
PROVIDERS: ATTEND Family Medicine
DX: Z11.8 Encounter for screening for other infectious and parasitic diseases (principal); E11.9 Type 2 diabetes mellitus without complications; W57.XXXD Bitten or stung by nonvenomous insect and other nonvenomous arthropods, subsequent encounter; I10 Essential (primary) hypertension

== ENCOUNTER 2019-12-19 16:34 | Emergency (ER) | payer BC, OTHER ==
[~2019-12-19] VITALS: Ht 190.5 cm; Wt 144.9 kg
[2019-12-19] MEDS ORDERED: LOSA25TA14 (16:42)
[2019-12-19 17:16] LABS: BASO # 0.1 10^3/uL (0.0-0.2); BASO % 0.8 % (0.0-1.0); EOS # 0.2 10^3/uL (0.0-0.5); EOS % 3.5 % (0.0-3.0); HEMATOCRIT 45.7 % (42.0-52.0); HEMOGLOBIN 15.8 g/dl (13.5-17.5); LYMPH # 2.1 10^3/uL (1.5-5.0); LYMPH % 31.7 % (24.0-44.0); MEAN CORPUSCULAR HEMOGLOBIN 29.6 pg (27.0-33.0); MEAN CORPUSCULAR HGB CONC 34.6 g/dl (32.0-36.5); MEAN CORPUSCULAR VOLUME 85.6 fl (80.0-96.0); MONO # 0.4 10^3/uL (0.0-0.8); MONO % 5.8 % (0.0-5.0); NEUTROPHILS # 3.8 10^3/uL (1.5-8.5); PLATELET COUNT, AUTOMATED 195 10^3/uL (150-450); RED BLOOD COUNT 5.34 10^6/uL (4.30-6.10); WHITE BLOOD COUNT 6.5 10^3/uL (4.0-10.0)
[2019-12-19] MEDS ORDERED: LOSARTAN 25 MG TAB PO ONE (17:30)
[2019-12-19] MEDS ORDERED: MECLIZINE 25 MG TABLET PO ONE (17:30)
[2019-12-19 17:32] LABS: ALBUMIN 3.5 GM/DL (3.2-5.2); ALT/SGPT 105 U/L (12-78); BILIRUBIN,TOTAL 0.8 MG/DL (0.2-1.0); BLOOD UREA NITROGEN 6 MG/DL (7-18); CALCIUM LEVEL 8.7 MG/DL (8.5-10.1); CARBON DIOXIDE LEVEL 27 MEQ/L (21-32); CHLORIDE LEVEL 107 MEQ/L (98-107); CREATININE FOR GFR 0.84 MG/DL (0.70-1.30); GLOMERULAR FILTRATION RATE > 60.0 (>56); GLUCOSE, FASTING 206 MG/DL (70-100); POTASSIUM SERUM 4.2 MEQ/L (3.5-5.1); SODIUM LEVEL 140 MEQ/L (136-145); TOTAL PROTEIN 6.9 GM/DL (6.4-8.2)
--- NOTE | 2019-12-19 17:40 | REPVR ---
PROCEDURE INFORMATION: Exam: CT Head Without Contrast Exam date and time: 12/19/2019 5:29 PM Age: 54 years old Clinical indication: Dizziness TECHNIQUE: Imaging protocol: Computed tomography of the head without contrast. Radiation optimization: All CT scans at this facility use at least one of these dose optimization techniques: automated exposure control; mA and/or kV adjustment per patient size (includes targeted exams where dose is matched to clinical indication); or iterative reconstruction. COMPARISON: No relevant prior studies available. FINDINGS: Brain: No acute intracranial hemorrhage, cerebral edema, or midline shift. Ventricles: No hydrocephalus. Bones/joints: No acute fracture. Sinuses: No acute sinusitis. Mastoid air cells: Visualized mastoid air cells are well aerated. Soft tissues: Unremarkable. IMPRESSION: No acute intracranial abnormality. Electronically signed by: Tevin Mccormick On 12/19/2019 17:40:39 PM
[2019-12-19 17:52] LABS: CK-MB VALUE MASS < 1.0 NG/ML (<3.6); CPK CREATINE PHOSPHOKINASE 131 U/L (39-308); MB/CK RELATIVE INDEX 0.76 (< OR =4); TROPONIN I < 0.02 NG/ML (< 0.10)
[2019-12-19 18:10] VITALS: BP 167/101
[2019-12-19] MEDS ORDERED: hydroCHLOROthiazide 25 MG TAB PO ONE (19:15)
--- NOTE | 2019-12-19 20:13 | REPVR ---
PROCEDURE INFORMATION: Exam: MR Head Without Contrast Exam date and time: 12/19/2019 7:01 PM Age: 54 years old Clinical indication: Dizziness TECHNIQUE: Imaging protocol: MR of the head without contrast. COMPARISON: CT Head without contrast 12/19/2019 5:26 PM FINDINGS: Brain: No intracranial hemorrhage or extra-axial fluid collection. No evidence of mass effect or midline shift. No white matter abnormalities. No restricted diffusion to suggest acute infarct. Ventricles: Ventricles, cisterns, and sulci are normal. Bones/joints: Unremarkable. Soft tissues: Unremarkable. Sinuses: Unremarkable. Mastoid air cells: No mastoid effusion. Orbits: Unremarkable. IMPRESSION: No acute intracranial findings. Electronically signed by: Neal Moran On 12/19/2019 20:13:41 PM
--- NOTE | 2019-12-19 20:22 | REPVR ---
PROCEDURE INFORMATION: Exam: MR Angiogram Head Without Contrast, Arteries Exam date and time: 12/19/2019 7:01 PM Age: 54 years old Clinical indication: Dizziness and giddiness TECHNIQUE: Imaging protocol: MR angiogram head without contrast. Exam focused on the arteries. COMPARISON: CT Head without contrast 12/19/2019 5:26 PM FINDINGS: Anterior cerebral arteries: Intracranial segment is patent with no significant stenosis. No aneurysm. Right internal carotid artery: Intracranial segment is patent with no significant stenosis. No aneurysm. Right anterior cerebral artery: No occlusion or significant stenosis. No aneurysm. Right middle cerebral artery: No occlusion or significant stenosis. No aneurysm. Right posterior cerebral artery: No occlusion or significant stenosis. No aneurysm. Right vertebral artery: No occlusion or significant stenosis. No aneurysm. Left internal carotid artery: Intracranial segment is patent with no significant stenosis. No aneurysm. Left middle cerebral artery: No occlusion or significant stenosis. No aneurysm. Left posterior cerebral artery: No occlusion or significant stenosis. No aneurysm. Left vertebral artery: No occlusion or significant stenosis. No aneurysm. Basilar artery: No occlusion or significant stenosis. No aneurysm. IMPRESSION: No MRA evidence of intracranial arterial occlusion or significant stenosis. Electronically signed by: Neal Moran On 12/19/2019 20:22:27 PM
[2019-12-19 20:42] LABS: APPEARANCE, URINE CLEAR (CLEAR); BACTERIA, URINE AUTO NEGATIVE (NEGATIVE); BILIRUBIN, URINE AUTO NEGATIVE (NEGATIVE); BLOOD, URINE BLOOD NEGATIVE (NEGATIVE); COLOR, URINE STRAW (YELLOW); GLUCOSE, URINE (UA) AUTO NEGATIVE (NEGATIVE); KETONE, URINE AUTO NEGATIVE (NEGATIVE); LEUKOCYTE ESTERASE, URINE AUTO NEGATIVE (NEGATIVE); NITRITE, URINE AUTO NEGATIVE (NEGATIVE); PROTEIN, URINE AUTO NEGATIVE (NEGATIVE); RBC, URINE AUTO 2 /HPF (0-3); SPECIFIC GRAVITY URINE AUTO 1.002 (1.002-1.035); SQUAMOUS EPITHELIAL CELL UR AU 0 /HPF (0-6); UROBILINOGEN, URINE AUTO 0.2 mg/dL (0.0-2.0); WBC, URINE AUTO 0 /HPF (0-3)
[2019-12-19] MEDS ORDERED: MECL1TAB31 PO ×2 (21:01→21:39)
[2019-12-19] MEDS ORDERED: HYDR25TAB PO ×2 (21:01→21:39)
[2019-12-19 21:30] VITALS: BP 170/100
--- NOTE | 2019-12-19 22:55 | ECGEPIP ---
[facility] - ED Test Date: 2019-12-19 Pat Name: MANUEL HODGE Department: Room: - Gender: Male [employer]: : 1965 Requested By: Janiya Hernandez Order Number: [id number] Reading MD: Kirby Ruth Measurements Intervals [place] Rate: 71 P: 8 DE: 117 QRS: 34 QRSD: 98 T: 31 QT: 397 QTc: 432 Interpretive Statements SINUS RHYTHM WITH SHORT DE INTERVAL WITH OCCASIONAL VENTRICULAR PREMATURE COMPLEXES SIMILAR TO 03/09/16 Electronically Signed on 12-19-2019 22:55:35 EDT by Kirby Ruth
== END 2019-12-19 21:35 | disposition home or self-care (01) ==
LOC: M ED 16:34
DX: R42 Dizziness and giddiness (principal); I10 Essential (primary) hypertension; E11.9 Type 2 diabetes mellitus without complications; E78.5 Hyperlipidemia, unspecified; Z79.899 Other long term (current) drug therapy; Z79.84 Long term (current) use of oral hypoglycemic drugs

== ENCOUNTER → 2020-02-06 | Outpatient (CLI) | payer BC, OTHER ==
[~2020-02-06] MED LIST changes: +HYDR25TAB PO; +LOSA25TA14; +MECL1TAB31 PO
[2020-02-06 15:22] LABS: HEMOGLOBIN A1c 10.7 %
== END ==
LOC: M PLALAB 11:17
PROVIDERS: ATTEND Family Medicine
DX: E11.9 Type 2 diabetes mellitus without complications (principal)

== ENCOUNTER → 2020-07-12 | Outpatient (REF) | payer OTHER ==
[2020-07-12 13:56] LABS: HEMATOCRIT 44.7 % (42.0-52.0); HEMOGLOBIN 14.9 g/dl (13.5-17.5); MEAN CORPUSCULAR HEMOGLOBIN 29.3 pg (27.0-33.0); MEAN CORPUSCULAR HGB CONC 33.3 g/dl (32.0-36.5); PLATELET COUNT, AUTOMATED 223 10^3/uL (150-450); RED BLOOD COUNT 5.08 10^6/uL (4.30-6.10)
[2020-07-12 15:21] LABS: ALBUMIN 3.7 GM/DL (3.2-5.2); ALT/SGPT 63 U/L (12-78); BILIRUBIN,TOTAL 0.3 MG/DL (0.2-1.0); BLOOD UREA NITROGEN 7 MG/DL (7-18); CALCIUM LEVEL 8.9 MG/DL (8.5-10.1); CARBON DIOXIDE LEVEL 26 MEQ/L (21-32); CHLORIDE LEVEL 107 MEQ/L (98-107); CHOLESTEROL LEVEL 110 MG/DL (<200); CHOLESTEROL RISK RATIO 3.437 (<5); CREATININE FOR GFR 0.87 MG/DL (0.70-1.30); GLOMERULAR FILTRATION RATE > 60.0 (>56); GLUCOSE, FASTING 88 MG/DL (70-100); HDL CHOLESTEROL 32 MG/DL (>40); LDL CHOLESTEROL 40 MG/DL (<100); NON-HDL-C 78 MG/DL; POTASSIUM SERUM 3.5 MEQ/L (3.5-5.1); SODIUM LEVEL 140 MEQ/L (136-145); TOTAL PROTEIN 6.9 GM/DL (6.4-8.2); TRIGLYCERIDES LEVEL 190 MG/DL (<150)
== END ==
LOC: M SFHCPLAZ 08:58
PROVIDERS: ATTEND Family Medicine
DX: E11.65 Type 2 diabetes mellitus with hyperglycemia (principal); I10 Essential (primary) hypertension; E78.5 Hyperlipidemia, unspecified; E66.9 Obesity, unspecified

== ENCOUNTER → 2020-07-13 | Outpatient (REF) | payer OTHER ==
[2020-07-13 17:58] LABS: MALB URINE SIEMENS 10.7 MG/L; MAU/CREAT RATIO 5.6 MCG/MG (0.0-30.0)
== END ==
LOC: M SFHCPLAZ 16:48
PROVIDERS: ATTEND Family Medicine
DX: E11.65 Type 2 diabetes mellitus with hyperglycemia (principal)

== ENCOUNTER → 2020-10-10 | Outpatient (CLI) | payer OTHER ==
[~2020-10-10] MED LIST changes: +ASPI81TA26 PO; +HYDR-3490 PO; -HYDR25TAB PO; -LOSA25TA14; +LOSA25TA14 PO; +METF-838 PO; +TRUL10IN SC
== END ==
LOC: M LABSMTC 08:10
PROVIDERS: ATTEND Anesthesiology
DX: Z01.818 Encounter for other preprocedural examination (principal); Z11.52 Encounter for screening for COVID-19

== ENCOUNTER 2020-10-15 07:04 | Day surgery (SDC) | payer BC, OTHER ==
[~2020-10-15] VITALS: Ht 190.5 cm; Wt 135.2 kg
[~2020-10-15 07:04] MED LIST changes: +NS 1,000 ML IV ONE
--- OUTSIDE RECORDS SUMMARY | 2020-10-15 07:09 | CCD ---
Author Author [facility] Organization [facility] Address Unknown Phone Unavailable Care Team Providers Care Assistant Secretary Name Role Phone Jeffery Daly Unavailable PROBLEMS Type Condition ICD9-CM Code [id number] Code Onset Dates Condition S tatus W/U Status Risk SNOMED Code Notes Problem Hyperlipidemia E78.5 Active confirmed 80124 004 Problem Dizziness R42 Active confirmed 285632485 Problem Sleep apnea G47.30 Active confirmed 73047527 Problem Type 2 diabetes mellitus wit hout complication, without long-term current use of insulin E11.9 Active confirmed 673728452 Problem Balanitis N48.1 Active confirmed 89287262 Problem Essential hypertension I10 Active confirmed 88992450 Problem Arthropathy M12.9 Active confirmed 27002062 3 Problem Obesity (BMI 30-39.9) E66.9 Active confirmed 031005703 Problem Type 2 diabetes mellitus with hyperglycemia E11.65 Active confirmed 85361131 Problem Ear infection H66.90 Active confirmed 363513 001 Problem Bilateral carpal tunnel syndrome G56.03 Active conf irmed 33109600 Problem Intervertebral disc disorder with radiculopathy of lumbar region M51.16 Active confirmed 028304595537567 Problem Intervertebral disc disorder with radiculopathy of lumbosacral region M51.17 Active confirmed 89046551195406758 Problem Intervertebral disc disorders with radiculopathy , lumbosacral region M51.17 Active confirmed [id number] ALLERGIES No Known Allergies ENCOUNTERS from 1965 to 2020-10-05 Encounter Location Date Provider Diagnosis [facility] Resident [address] [place] [address] 15 Sep, 2020 Jeffery Daly IMMUNIZATIONS Vaccine Route Administration Date Status Pneumococcal Adult 0.5mL (Pneumovax 23) IM Intramuscular January Administered TDAP 0.5mL (Boostrix) IM Intramuscular February 06, 2020 Administe red SOCIAL HISTORY Tobacco Use: Social History Observation Description Date Details (start date - stop date) Current Smoker Sex Assigned At : Social History Observation Description Sex Assigned At Unknown Education: Question Answer Notes Level of Education: Finished High School Audit Question Answer Notes Total Score: 9 Interpretation: Simple Advice Language: Question Answer Notes Languages spoken: Nepali Hoahaoism: Question Answer Notes Hoahaoism 99 Other Sexual Hx: Question Answer Notes Had sex in the last 12 months (vaginal, oral, or anal)? Yes Have you ever had an STD? No Prevention Strategies discussed: Other with Women only Use protection? No Drug and Alcohol Question Answer Notes Total Score: 0 Interpretation: No problems reported Alcohol Screening: Question Answer Notes Did you have a drink containing alcohol in the past year? Ye s Points 7 Interpretation Positive How often did you have six or more drinks on one occas ion in the past year? Weekly (3 points) How many drinks did you have on a typica l day when you were drinking in the past year? 5 or 6 (2 points) How often did you have a drink containing alcohol in t he past year? Two to four times a month (2 points) BMI Care Goal Follow-Up Question Answer Notes Above Normal BMI Follow-Up Dietary management educatio n, guidance, and counseling -37.6 Tobacco Use: Question Answer Notes Are you a: current smoker Chews Tobacco Smoking Cessation Information Given 11/07/2019 How many cigarettes a day do you smoke? 11-20 REASON FOR REFERRAL No Information VITAL SIGNS No information MEDICATIONS Medication SIG (Take, Route, Frequency, Duration) Notes Start Da te End Date Status Lancets - as directed _ Daily. DX: E11.9 for 30 day(s) Jun, Active Trulicity 0.75 MG/0.5ML as directed Subcutaneous Once a week for 28 days Jun, Active Pen [place] 31G X 8 MM as directed with insulin pen for 30 days Feb, Active Hydrochlorothiazide 25 MG TAKE ONE TABLET BY MOUTH EVERY DAY Oral for 90 Active Lipitor 40 MG 1 tablet Orally Once a day for 90 Active Glucometer _ as directed DX: E11.9 monitor BGs in morning for 99 months Jun, Not-Taking Blood Glucose Test Strip - as directed In Vitro Daily. DX: E 11.9 for 99 months Jun, Active Lantus SoloStar 100 UNIT/ML strat at 15 units Subcutan eous once a day before bed for 30 days Feb, Not-Taking Losartan Potassium 25 MG 1 tablet Orally Once a day for 30 Active Aspirin 81 MG 1 tablet Orally Once a day Active Ibuprofen 800 MG 1 tablet with food or milk a s needed Orally Three times a day prn for 30 day(s) Sep, Not-Taking MetFORMIN HCl ER 500 MG 4 tablets with evening meal Orally Once a day for 30 Active Metformin HCl 1000 MG 1 tablet with meals Orally twice daily for 90 day(s) Not-Taking PROCEDURES No Information RESULTS No Results REASON FOR VISIT Prescription MEDICAL (GENERAL) HISTORY Type Description Date Medical History Hyperlipidemia Medical History Obesity Medical History Hypertension goal BP < 140/90 Medical History Chronic Back/Neck Pain Medical History ZULLY w/ CPAP Medical History Bilateral carpal tunnel syndrome Medical History Type 2 diabetes goal Hb A1c < 7 Surgical History Surgery on penis Surgical History 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 Surgical History Colonoscopy repeat 3 years 2016 Hospitalization History No Hospitalization history informati on Goals Section No Information Health Concerns No Information MEDICAL EQUIPMENT No Information MENTAL STATUS No Information FUNCTIONAL STATUS No Information ASSESSMENTS No Information PLAN OF TREATMENT Medication Medication Name Sig Start Date Stop Date Losartan Potassium 25 MG 1 tablet Orally Once a day for 30 Next Appt Details Provider Name:Jeffery Daly, 2020-10-28 08:00:00 AM, [address] [facility], [place], [address], Insurance Providers Payer Name Payer Address Payer Phone Insured Name Patient Relati onship to Insured Coverage Start Date Coverage End Date [facility] [address] [facility] [id number] MANUEL HODGE self
--- OUTSIDE RECORDS SUMMARY | 2020-10-15 07:10 | CCD | Continuity of Care Document ---
Author Author [facility] Organization Unknown Address [address] [place] [address], [address] [place] [address] Phone [phone] Care Team Providers Care Seal Mixer Name Role Phone Laura Carrion AUTM [phone] Jeffery Tee D.O. AUTMagda Unavailable Problems Active Problems Provider Date Essential hypertension Josie Teague ERINN Sands Onset: Social History Type Date Description Comments Sex Unknown ETOH Use 6 A Month Tobacco Use Start: Unknown Smokes 1 Pack A Day Tobacco Use Start: Unknown Report Cessation Counseling Was Provided Allergies, Adverse Reactions, Alerts Description No Known Drug Allergies Medications Active Medications SIG Qnty Indications Ordering Provide r Date Suprep Bowel Prep Kit 17.5-3.13-1.6GM/177ML Solution take per doctor's bowel prep instructions. 354ml Z12.1 1 Bandar Le MD 07/30/2020 Milk Of Magnesia 1200mg/15ML Suspe nsion take 45 milliliters by mouth as directed on colonoscopy prep sheet. Z12.11 Bandar Le MD 07/30/2020 Metformin HCL 500mg Tablets 4 once daily Unknown Lipitor 40mg Tablets 1 by mouth every day Unknown Losartan Potassium 25mg Tablets once a day Unknown Hydrochlorothiazide 25mg Tablets 1 by mouth every day Unknown Aspirin [address] one tab by mouth once a day Unknown Trulicity 0.75mg/0.5 ML Solution Pen-Inject once weekly Unknown Immunizations Description No Information Available Vital Signs Date Vital Result Comment 07/30/2020 2:09pm BP Systolic 140 mmHg BP Diastolic 90 mmHg Height 75 inches 6'3" Weight 298.00 lb BMI (Body Mass Index) 37.2 kg/m2 Mobile Body Weight 196 lb Weight 135.173 kg BSA (Body Surface Area) 2.60 m2 05/24/2017 8:51am BP Systolic 132 mmHg BP Diastolic 72 mmHg Height 75 inches 6'3" Weight 308.00 lb BMI (Body Mass Index) 38.5 kg/m2 Mobile Body Weight 196 lb Weight 139.709 kg BSA (Body Surface Area) 2.64 m2 Results Description No Information Available Procedures Description No Information Available Medical Devices Description No Information Available Encounters Description No Information Available Assessments Date Code Description Provider 07/30/2020 Z12.11 Encounter for screening for oxana gnant neoplasm of colon ERINN Quevedo 07/30/2020 Z86.010 Personal history of colonic poly ps ERINN Quevedo Plan of Treatment 07/30/2020 - ERINN Quevedo* Z12.11 Encounter for screening for malignant neoplasm of colon * Z86.010 Personal history of colonic polyps * * New Medication:* Suprep Bowel Prep Kit 17.5-3.13-1.6 GM/177ML * Milk Of Magnesia 1200 mg/15ML * New Orders:* Colonoscopy, Ordered: 07/30/20 * Comments:* Will arrange for colonoscopy. Reviewed risks and benefits of the procedure, as well as other options, with the patient. Bowel prep procedure was discussed with patient, as well as risks and side effects associated with the bowel prep. Patient verbalized understanding of all of the above and is in agreement to proceed. Patient will seek medical attention for any acute changes. Will monitor. * Follow up:* As scheduled, sooner if needed. Functional Status Description No Information Available Mental Status Description No Information Available Referrals Description No Information Available
--- OUTSIDE RECORDS SUMMARY | 2020-10-15 07:10 | CCD ---
Author Author [facility] Organization [facility] Address Unknown Phone Unavailable Care Team Providers Care Outside Industrial Sales Representative Name Role Phone Abhi Myles MD Unavailable Unavailable Abhi Myles MD Unavailable Unavailable Abhi Myles MD Unavailable Unavailable Abhi Myles MD Unavailable Unavailable Abhi Myles MD Unavailable Unavailable Abhi Myles MD Unavailable Unavailable Abhi Myles MD Unavailable Unavailable Abhi Myles MD Unavailable Unavailable Abhi Myles MD Unavailable Unavailable Abhi Myles MD Unavailable Unavailable Abhi Myles MD Unavailable Unavailable Abhi Myles MD Unavailable Unavailable Abhi Myles MD Unavailable Unavailable Abhi Myles MD Unavailable Unavailable Abhi Myles MD Unavailable Unavailable Abhi Myles MD Unavailable Unavailable Abhi Myles MD Unavailable Unavailable Abhi Myles MD Unavailable Unavailable Abhi Myles MD Unavailable Unavailable Abhi Myles MD Unavailable Unavailable Abhi Myles MD Unavailable Unavailable Abhi Myles MD Unavailable Unavailable Abhi Myles MD Unavailable Unavailable Abhi Myles MD Unavailable Unavailable Abhi Myles MD Unavailable Unavailable Abhi Myles MD Unavailable Unavailable Abhi Myles MD Unavailable Unavailable Abhi Myles MD Unavailable Unavailable Abhi Myles MD Unavailable Unavailable Abhi Myles MD Unavailable Unavailable Abhi Myles MD Unavailable Unavailable Abhi Myles MD Unavailable Unavailable Abhi Myles MD Unavailable Unavailable Abhi Myles MD Unavailable Unavailable Abhi Myles MD Unavailable Unavailable Abhi Myles MD Unavailable Unavailable Abhi Myles MD Unavailable Unavailable Abhi Myles MD Unavailable Unavailable Abhi Myles MD Unavailable Unavailable Abhi Myles MD Unavailable Unavailable Abhi Myles MD Unavailable Unavailable Abhi Myles MD Unavailable Unavailable Abhi Myles MD Unavailable Unavailable Abhi Myles MD Unavailable Unavailable Abhi Myles MD Unavailable Unavailable Abhi Myles MD Unavailable Unavailable Abhi Myles MD Unavailable Unavailable Abhi Myles MD Unavailable Unavailable Abhi Myles MD Unavailable Unavailable Abhi Myles MD Unavailable Unavailable Abhi Myles MD Unavailable Unavailable Abhi Myles MD Unavailable Unavailable Abhi Myles MD Unavailable Unavailable Abhi Myles MD Unavailable Unavailable Abhi Myles MD Unavailable Unavailable Abhi Myles MD Unavailable Unavailable Abhi Myles MD Unavailable Unavailable Abhi Myles MD Unavailable Unavailable [facility] Unavailable Unavailable Re-disclosure Warning The records that you are about to access may contain information from federally-assisted alcohol or drug abuse programs. If such information is present, then the following federally mandated warning applies: This information has been disclosed to you from records protected by federal confidentiality rules (42 CFR part 2). The federal rules prohibit you from making any further disclosure of this information unless further disclosure is expressly permitted by the written consent of the person to whom it pertains or as otherwise permitted by 42 CFR part 2. A general authorization for the release of medical or other information is NOT sufficient for this purpose. The Federal rules restrict any use of the information to criminally investigate or prosecute any alcohol or drug abuse patient.The records that you are about to access may contain highly sensitive health information, the redisclosure of which is protected by Article 27-F of the [facility] Public Health law. If you continue you may have access to information: Regarding HIV / AIDS; Provided by facilities licensed or operated by the [facility] Office of Mental Health; or Provided by the [facility] Office for People With Developmental Disabilities. If such information is present, then the following [facility] mandated warning applies: This information has been disclosed to you from confidential records which are protected by state law. State law prohibits you from making any further disclosure of this information without the specific written consent of the person to whom it pertains, or as otherwise permitted by law. Any unauthorized further disclosure in violation of state law may result in a fine or usp sentence or both. A general authorization for the release of medical or other information is NOT sufficient authorization for further disc losure. Family History Family Member Name Family Member Gender Family Member Status Date o f Status Description Data Source(s) Unknown Unknown Problem [facility] Unknown Unknown Problem MEDENT ([facility] mother Encounters Encounter Providers Location Date Indications Data Source(s ) Unknown [address] [facility] [place] [address] 10/04/2020 12:00:00 AM EST eCW1 [facility] [address] [facility] [place] [address] 07/12/2020 12:00:00 AM EST eCW1 ([facility]) Unknown [address] [facility] [place] [address] 06/24/2020 12:00:00 AM EST [facility] [place] [address] [facility] [place] [address] 06/21/2020 12:00:00 AM EST [facility] Outpatient Attender: [facility] 06/15/2020 12:02:11 AM EDT [facility] [place] [address] [facility] [place] [address] 03/05/2020 12:00:00 AM EDT eCW1 [facility]) Outpatient Attender: Abhi GROVES.BRINDA-SJJASVIR 12/18 12:00:[address] [facility] Outpatient 12/30/2019 05:39:00 AM EDT [facility] [address] [address] 11/07/2019 12:00:00 AM EDT [facility]CW1 [facility] [address] [address] 11/07/2019 12:00:00 AM EDT [facility]CW1 [facility] [address] [address] 11/03/2019 12:00:00 AM EDT eCW1 ([facility] [address] [address] 10/10/2019 12:00:00 AM EST eCW1 [facility] [address] [place] [address] 10/09/2019 12:00:00 AM EST eCW1 [facility]) Immunizations Vaccine Date Status Description Data Source(s) Tdap 02/06/2020 09:33:00 AM EDT completed e CW1 ([facility]) Tdap 02/06/2020 09:33:00 AM EDT completed e CW1 ([facility]) Tdap 02/06/2020 09:33:00 AM EDT completed e CW1 ([facility]) Tdap 02/06/2020 09:33:00 AM EDT completed e CW1 ([facility]) Tdap 02/06/2020 09:33:00 AM EDT completed e CW1 ([facility]) pneumococcal polysaccharide PPV23 02/06/2020 09:32:00 AM EDT comple triston eCW1 ([facility]) pneumococcal polysaccharide PPV23 02/06/2020 09:32:00 AM EDT comple triston eCW1 ([facility]) pneumococcal polysaccharide PPV23 02/06/2020 09:32:00 AM EDT comple triston eCW1 ([facility]) pneumococcal polysaccharide PPV23 02/06/2020 09:32:00 AM EDT comple triston eCW1 ([facility]) pneumococcal polysaccharide PPV23 02/06/2020 09:32:00 AM EDT comple triston eCW1 ([facility]) Medications Medication Brand Name Start Date Product Form Dose Route Admi nistrative Instructions Pharmacy Instructions Status Indications Reaction Description Data Source(s) Suprep Bowel Prep Kit Suprep Bowel Prep Kit 07/30/2020 12:00:00 AM EST active MEDENT ([facility], ) Magnesium Hydroxide 80 MG/ML Oral Suspension Milk Of Magnesi a 07/30/2020 12:00:00 AM EST ORAL active M EDENT ([facility], ) 0.5 ML dulaglutide 1.5 MG/ML Auto-Injector [Trulicity] Trulicity 0.75 MG/0.5ML Trulicity 0.75 MG/0.5ML 06/24/2020 12:00:00 AM EST active Trulicity 0.75 MG/0.5ML eCW1 ([facility]) 0.5 ML dulaglutide 1.5 MG/ML Auto-Injector [Trulicity] Trulicity 0.75 MG/0.5ML Trulicity 0.75 MG/0.5ML 06/24/2020 12:00:00 AM EST active Trulicity 0.75 MG/0.5ML eCW1 ([facility]) 0.5 ML dulaglutide 1.5 MG/ML Auto-Injector [Trulicity] Trulicity 0.75 MG/0.5ML Trulicity 0.75 MG/0.5ML 06/24/2020 12:00:00 AM EST active Trulicity 0.75 MG/0.5ML eCW1 ([facility]) Pen Heth 31G X 8 MM Pen Heth 31G X 8 MM 03/05/2020 12:00:00 AM E DT active Pen Heth 31G X 8 MM eC W1 ([facility]) 3 ML Insulin Glargine 100 UNT/ML Pen Inj marisela [Lantus] Lantus SoloStar 100 UNIT/ML Lantus SoloStar 100 UNIT/ML 03/05/2020 12:00:00 AM EDT suspended Lantus SoloStar 100 UNIT/ML eCW1 ([facility]) 3 ML Insulin Glargine 100 UNT/ML Pen Inj marisela [Lantus] Lantus SoloStar 100 UNIT/ML Lantus SoloStar 100 UNIT/ML 03/05/2020 12:00:00 AM EDT suspended Lantus SoloStar 100 UNIT/ML eCW1 ([facility]) Pen Heth 31G X 8 MM Pen Heth 31G X 8 MM 03/05/2020 12:00:00 AM E DT active Pen Heth 31G X 8 MM eC W1 ([facility]) 3 ML Insulin Glargine 100 UNT/ML Pen Inj marisela [Lantus] Lantus SoloStar 100 UNIT/ML Lantus SoloStar 100 UNIT/ML 03/05/2020 12:00:00 AM EDT active Lantus SoloStar 100 UNIT/ML eCW1 ([facility]) Pen Heth 31G X 8 MM Pen Heth 31G X 8 MM 03/05/2020 12:00:00 AM E DT active Pen Heth 31G X 8 MM eC W1 ([facility]) 3 ML Insulin Glargine 100 UNT/ML Pen Inj marisela [Lantus] Lantus SoloStar 100 UNIT/ML Lantus SoloStar 100 UNIT/ML 03/05/2020 12:00:00 AM EDT active Lantus SoloStar 100 UNIT/ML eCW1 ([facility]) Pen Heth 31G X 8 MM Pen Heth 31G X 8 MM 03/05/2020 12:00:00 AM E DT active Pen Heth 31G X 8 MM eC W1 ([facility]) Pen Heth 31G X 8 MM Pen Heth 31G X 8 MM 03/05/2020 12:00:00 AM E DT active Pen Heth 31G X 8 MM eC W1 ([facility]) 3 ML Insulin Glargine 100 UNT/ML Pen Inj marisela [Lantus] Lantus SoloStar 100 UNIT/ML Lantus SoloStar 100 UNIT/ML 03/05/2020 12:00:00 AM EDT active Lantus SoloStar 100 UNIT/ML eCW1 ([facility]) Insurance Providers Payer name Policy type / Coverage type Policy ID Covered constitution party ID Covered constitution party's relationship to hurd Policy Hurd Plan Information BCBS [place] DIV [id number] SP [id number] [facility] [id number] SP [id number] [facility] [id number] SP [id number] GHI P UNAVAILABLE S UNAVAILA BLE EXCELLUS BCBS [id number] Lisseth YLS [id number] [facility] O [id number] S [id number] [id number] SP [id number] [facility] O [id number] S [id number] ANSI-Commercial [id number] ANSI-Commercial [id number] ANSI-Commercial [id number] ANSI-Commercial [id number] ANSI-Commercial [id number] ANSI-Commercial [id number] ANSI-Commercial [id number] ANSI-Commercial [id number] ANSI-Commercial [id number] ANSI-Commercial [id number] ANSI-Commercial [id number] ANSI-Commercial [id number] ANSI-Commercial [id number] ANSI-Commercial [id number] BCBS EMPIRE HYACINTH DIV [id number] SP [id number] [facility] Health Maintenance Organization (HMO) [id number] Self [id number] [facility] [place] Commercial [id number] Self [id number] NO FAULT [id number] SP [id number] [facility] [id number] SP [id number] [facility] [place] Commercial Self BCBS [place] BC [id number] S [id number] BCBS E[place]IRE BC UNAVAILABLE S UNAVAI LABLE [id number] Problems, Conditions, and Diagnoses Code Display Name Description Problem Type Effective Dates Data Source(s) 36282659 Essential hypertension Essential hypertension Problem 07/30/2020 12:00:00 AM EST MEDENT ([facility], ) E11.65 [id number] Type 2 diabetes mellitus with hyperglycem ia Problem 03/07/2020 12:00:00 AM EDT eCW1 ([facility]) M12.9 [id number] Arthropathy Problem 11/07/2019 12:00:00 AM E DT eCW1 ([facility]) M12.9 [id number] Arthropathy Problem 11/07/2019 12:00:00 AM E DT eCW1 ([facility]) I10 Essential (primary) hypertension Essential (primary) h ypertension Diagnosis 01/01/2020 01:16:[address] [facility] R42 Dizziness and giddiness Dizziness and giddiness Diagno sis 01/01/2020 01:16:[address] [facility] Results ID Date Data Source [id number] 10/10/2020 09:00:00 AM EST [facility] Name Value Range Interpretation Code Description Data Neyda rce(s) Supporting Document(s) SARS coronavirus 2 RNA Not Detected [facility] [place] This lab was ordered by [facility] and reported by [facility]. ID Date Data Source Fingerstick blood sugar 03/05/2020 03:29:03 AM EDT eCW1 (On license of [facility]) Name Value Range Interpretation Code Description Data Neyda rce(s) Supporting Document(s) 443 Glucose eCW1 ([facility]) Procedure Social History Code Duration Value Status Description Data Source(s ) Smoking 07/12/2020 12:00:00 AM EST Current Smoker completed Curre nt Smoker eCW1 ([facility]) Smoking 07/12/2020 12:00:00 AM EST Current Smoker completed Curre nt Smoker eCW1 ([facility]) Smoking 03/04/2020 12:00:00 AM EDT Former Smoker completed Former Smoker eCW1 ([facility]) Smoking 03/04/2020 12:00:00 AM EDT Former Smoker completed Former Smoker eCW1 ([facility]) Smoking 03/04/2020 12:00:00 AM EDT Former Smoker completed Former Smoker eCW1 ([facility]) Vital Signs ID Date Data Source UNK Name Value Range Interpretation Code Description Data Source(s) Body surface area Derived from formula 2.60 m2 2.60 m2 [facility] ([facility]) Body weight 135.173 kg 135.173 kg [facility] ([facility]) Kelley body weight 196 [lb_av] 196 [lb_av] MEDEN T ([facility]) Body mass index (BMI) [Ratio] 37.2 kg/m2 37.2 k g/m2 [facility] ([facility]) Body weight 298.00 [lb_av] 298.00 [lb_av] [facility] Body height 75 [in_i] 75 [in_i] [facility] ([facility]) 6'3" Diastolic blood pressure 90 mm[Hg] 90 mm[Hg] [facility] ([facility]) Systolic blood pressure 140 mm[Hg] 140 mm[Hg] M EDENT ([facility]) Diastolic blood pressure 82 mm[Hg] 82 mm[Hg] eCW1 ([facility]) Systolic blood pressure 144 mm[Hg] 144 mm[Hg] e CW1 ([facility]) Body temperature 96.6 [degF] 96.6 [degF] W1 ( [facility]) Respiratory rate 18 /min 18 /min eCW1 ([facility]) Heart rate 106 /min 106 /min eCW1 ([facility]) Body mass index (BMI) [Ratio] 37.99 kg/m2 37.99 kg/m2 eCW1 ([facility]) Body height 75 [in_i] 75 [in_i] eCW1 ([facility]) Body weight 304 [lb_av] 304 [lb_av] eCW1 ([facility]) Diastolic blood pressure 82 mm[Hg] 82 mm[Hg] eCW1 ([facility]) Systolic blood pressure 128 mm[Hg] 128 mm[Hg] e CW1 ([facility]) Body temperature 97.8 [degF] 97.8 [degF] eCW1 ( [facility]) Respiratory rate 18 /min 18 /min eCW1 ([facility]) Heart rate 91 /min 91 /min eCW1 ([facility]) Body mass index (BMI) [Ratio] 37.22 kg/m2 37.22 kg/m2 eCW1 ([facility]) Body height 75 [in_i] 75 [in_i] eCW1 ([facility]) Body weight 297.8 [lb_av] 297.8 [lb_av] eCW1 ([facility]s include [facility] beds at [facility]) Patient Treatment Plan of Care Planned Activity Planned Date Details Description Data Source (s) 0.5 ML dulaglutide 1.5 MG/ML Auto-Injector [Trulicity] 06/24/2020 12:00:00 AM EST eCW1 ([facility]) Pen Heth 31G X 8 MM 03/05/2020 12:00:00 AM EDT eCW1 ([facility]) 3 ML Insulin Glargine 100 UNT/ML Pen Injector [Lantus] 03/05/2020 12:00:00 AM EDT eCW1 ([facility]) 3 ML Insulin Glargine 100 UNT/ML Pen Injector [Lantus] 03/05/2020 12:00:00 AM EDT eCW1 ([facility]) Pen Heth 31G X 8 MM 03/05/2020 12:00:00 AM EDT eCW1 ([facility]) 3 ML Insulin Glargine 100 UNT/ML Pen Injector [Lantus] 03/05/2020 12:00:00 AM EDT eCW1 ([facility]) Pen Heth 31G X 8 MM 03/05/2020 12:00:00 AM EDT eCW1 ([facility])
[2020-10-15] MEDS ORDERED: propofoL 200 MG/20 ML VIAL As Ordered ONE (07:48)
[2020-10-15] MEDS ORDERED: LIDOCAINE 2% 100MG/5ML SDV (FOR ANES.) As Ordered ONE (07:48)
--- NOTE | 2020-10-15 08:24 | ROOR ---
Patient Name: Neal Troy Procedure Date: 10/15/2020 7:59 AM Date of : 1965 Age: 54 Room: [facility] Gender: Male Note Status: Finalized Procedure: Colonoscopy Indications: High risk colon cancer surveillance: Personal history of colonic polyps, Last colonoscopy: May 2017 Providers: Bandar STEEL MD Referring MD: Jeffery Tee Do Requesting Provider: Medicines: Monitored Anesthesia Care Complications: No immediate complications. Procedure: Pre-Anesthesia Assessment: - The heart rate, respiratory rate, oxygen saturations, blood pressure, adequacy of pulmonary ventilation, and response to care were monitored throughout the procedure. The Colonoscope was introduced through the anus and advanced to the terminal ileum, with identification of the appendiceal orifice and IC valve. The colonoscopy was performed without difficulty. The patient tolerated the procedure well. The quality of the bowel preparation was good. Findings: The perianal and digital rectal examinations were normal. A 5 mm polyp was found in the proximal ascending colon. The polyp was sessile. The polyp was removed with a cold snare. Resection and retrieval were complete. Multiple small and large-mouthed diverticula were found in the sigmoid colon. Small Internal Hemorrhoids. The exam was otherwise without abnormality on direct and retroflexion views. Impression: - One 5 mm polyp in the proximal ascending colon, removed with a cold snare. Resected and retrieved. - Diverticulosis in the sigmoid colon. - Small Internal Hemorrhoids. - The examination was otherwise normal on direct and retroflexion views. Recommendation: - Repeat colonoscopy in 5 years for surveillance. Procedure Code(s): --- Professional --- 89425, Colonoscopy, flexible; with removal of tumor(s), polyp(s), or other lesion(s) by snare technique Diagnosis Code(s): --- Professional --- Z86.010, Personal history of colonic polyps K63.5, Polyp of colon K57.30, Diverticulosis of large intestine without perforation or abscess without bleeding CPT copyright 2019 [employer]. All rights reserved. The codes documented in this report are preliminary and upon sr. operations manager review may be revised to meet current compliance requirements. Bandar Steel MD Bandar STEEL MD 10/15/2020 8:24:19 AM Electronically signed by Bandar STEEL MD Number of Addenda: 0 Note Initiated On: 10/15/2020 7:59 AM Estimated Blood Loss: Estimated blood loss: none.
[2020-10-15 08:40] VITALS: BP 132/94
== END 2020-10-15 08:55 | disposition home or self-care (01) ==
LOC: M OPP 07:04
PROVIDERS: ATTEND Internal Medicine Gastroenterology
DX: Z12.11 Encounter for screening for malignant neoplasm of colon (principal); Z86.010 Personal history of colon polyps; K63.5 Polyp of colon; K57.30 Diverticulosis of large intestine without perforation or abscess without bleeding; K64.8 Other hemorrhoids; I10 Essential (primary) hypertension; E78.5 Hyperlipidemia, unspecified; E11.9 Type 2 diabetes mellitus without complications; G47.30 Sleep apnea, unspecified; F17.210 Nicotine dependence, cigarettes, uncomplicated; Z79.82 Long term (current) use of aspirin; Z79.84 Long term (current) use of oral hypoglycemic drugs; Z79.899 Other long term (current) drug therapy; Z83.3 Family history of diabetes mellitus; Z83.49 Family history of other endocrine, nutritional and metabolic diseases

== ENCOUNTER → 2020-10-28 | Outpatient (REF) | payer OTHER ==
[~2020-10-28] MED LIST changes: -NS 1,000 ML IV ONE
[2020-10-28 10:39] LABS: HEMATOCRIT 46.7 % (42.0-52.0); HEMOGLOBIN 15.6 g/dl (13.5-17.5); MEAN CORPUSCULAR HEMOGLOBIN 29.3 pg (27.0-33.0); MEAN CORPUSCULAR HGB CONC 33.4 g/dl (32.0-36.5); MEAN CORPUSCULAR VOLUME 87.6 fl (80.0-96.0); PLATELET COUNT, AUTOMATED 231 10^3/uL (150-450); RED BLOOD COUNT 5.33 10^6/uL (4.30-6.10); WHITE BLOOD COUNT 10.9 10^3/uL (4.0-10.0)
[2020-10-28 11:28] LABS: HEMOGLOBIN A1c 6.1 %
== END ==
LOC: M SFHCPLAZ 08:33
PROVIDERS: ATTEND Family Medicine
DX: E11.9 Type 2 diabetes mellitus without complications (principal)

== ENCOUNTER → 2021-01-31 | Outpatient (REF) | payer OTHER ==
[2021-01-31 12:05] LABS: HEMOGLOBIN A1c 5.9 %
== END ==
LOC: M SFHCPLAZ 08:26
PROVIDERS: ATTEND Family Medicine
DX: E11.9 Type 2 diabetes mellitus without complications (principal)

== ENCOUNTER → 2021-05-13 | Outpatient (REF) | payer OTHER | LOC: M SFHCPLAZ 08:57 | PROVIDERS: ATTEND Family Medicine | DX: Z53.20 Procedure and treatment not carried out because of patient's decision for unspecified reasons (principal) ==

== ENCOUNTER → 2021-05-13 | Outpatient (CLI) | payer BC, OTHER ==
[2021-05-13 10:52] LABS: ALBUMIN 3.4 GM/DL (3.2-5.2); ALT/SGPT 49 U/L (12-78); BILIRUBIN,TOTAL 0.5 MG/DL (0.2-1.0); BLOOD UREA NITROGEN 5 MG/DL (7-18); CALCIUM LEVEL 8.4 MG/DL (8.5-10.1); CARBON DIOXIDE LEVEL 29 MEQ/L (21-32); CHLORIDE LEVEL 105 MEQ/L (98-107); CREATININE FOR GFR 0.79 MG/DL (0.70-1.30); GLOMERULAR FILTRATION RATE > 60.0 (>56); GLUCOSE, FASTING 103 MG/DL (70-100); POTASSIUM SERUM 3.4 MEQ/L (3.5-5.1); SODIUM LEVEL 142 MEQ/L (136-145); TOTAL PROTEIN 6.2 GM/DL (6.4-8.2)
== END ==
LOC: M PLALAB 09:05
PROVIDERS: ATTEND Student in an Organized Health Care Education/Training Program
DX: I10 Essential (primary) hypertension (principal)

== ENCOUNTER → 2021-05-20 | Outpatient (CLI) | payer BC, OTHER ==
--- NOTE | 2021-05-20 13:09 | REP ---
INDICATION: GANGLION CYST OF FINGER OF RIGHT HAND. COMPARISON: None. TECHNIQUE: Four views FINDINGS: No acute fracture or destructive osseous lesion. IMPRESSION: No bony abnormality <Electronically signed by Harish Short > 05/20/21 [id number]
[2021-05-20 14:23] LABS: BLOOD UREA NITROGEN 8 MG/DL (7-18); CALCIUM LEVEL 8.9 MG/DL (8.5-10.1); CARBON DIOXIDE LEVEL 28 MEQ/L (21-32); CHLORIDE LEVEL 108 MEQ/L (98-107); CREATININE FOR GFR 0.95 MG/DL (0.70-1.30); GLOMERULAR FILTRATION RATE > 60.0 (>56); GLUCOSE, FASTING 144 MG/DL (70-100); POTASSIUM SERUM 3.5 MEQ/L (3.5-5.1); SODIUM LEVEL 142 MEQ/L (136-145)
== END ==
LOC: M PLALAB 10:42
PROVIDERS: ATTEND Student in an Organized Health Care Education/Training Program
DX: E87.6 Hypokalemia (principal); M67.441 Ganglion, right hand

== ENCOUNTER → 2021-07-06 | Outpatient (CLI) | payer BC, OTHER ==
--- NOTE | 2021-07-06 09:17 | REP ---
INDICATION: LUNG CANCER SCREENING COMPARISON: None. TECHNIQUE: Axial noncontrast images from the thoracic inlet to the upper abdomen using low-dose lung screening technique (LDCT). FINDINGS: Bilateral lung conteh are relatively symmetric, well aerated and essentially clear. Very few small 2 mm densities are identified with partial calcification. No acute consolidation, suspicious nodule or mass lesion otherwise appreciated. No effusion. No pneumothorax. Tracheobronchial tree is patent. Mediastinum is grossly unremarkable. IMPRESSION: Lung-RADS category 1. No suspicious nodule or mass. Management recommendations include annual low-dose CT surveillance. <Electronically signed by Nilton Maldonado > 07/06/21 [id number]
== END ==
LOC: M RAD 07:28
PROVIDERS: ATTEND Student in an Organized Health Care Education/Training Program
DX: Z12.2 Encounter for screening for malignant neoplasm of respiratory organs (principal)

== ENCOUNTER → 2021-08-05 | Outpatient (CLI) | payer BC, OTHER ==
[~2021-08-05] MED LIST changes: +LOSA25TA13 PO; -LOSA25TA14 PO
[2021-08-05 14:22] LABS: HEMOGLOBIN A1c 5.6 %
[2021-08-05 14:25] LABS: MALB URINE SIEMENS 23.6 MG/L
== END ==
LOC: M PLALAB 11:35
PROVIDERS: ATTEND Student in an Organized Health Care Education/Training Program
DX: E11.9 Type 2 diabetes mellitus without complications (principal)

== ENCOUNTER → 2021-08-31 | Outpatient (CLI) | payer BC, OTHER | LOC: M WHC 09:05 | PROVIDERS: ATTEND Student in an Organized Health Care Education/Training Program | DX: R22.31 Localized swelling, mass and lump, right upper limb (principal) ==

== ENCOUNTER → 2021-10-11 | Outpatient (CLI) | payer BC, OTHER | LOC: M SOG 08:14 | PROVIDERS: ATTEND Orthopaedic Surgery Hand Surgery | DX: M79.641 Pain in right hand (principal) ==

== ENCOUNTER 2022-02-23 06:55 | Emergency (ER) | payer BC, OTHER ==
[~2022-02-23] VITALS: Ht 190.5 cm; Wt 131.7 kg
[2022-02-23] MEDS ORDERED: PRED20TA (07:10)
[2022-02-23] MEDS ORDERED: CEPH500C (07:10)
[2022-02-23 08:09] LABS: BASO # 0.1 10^3/uL (0.0-0.2); BASO % 0.8 % (0.0-1.0); EOS # 0.3 10^3/uL (0.0-0.5); EOS % 3.5 % (0.0-3.0); HEMATOCRIT 45.5 % (42.0-52.0); HEMOGLOBIN 15.7 g/dl (13.5-17.5); LYMPH # 2.9 10^3/uL (1.5-5.0); MEAN CORPUSCULAR HEMOGLOBIN 29.3 pg (27.0-33.0); MEAN CORPUSCULAR HGB CONC 34.5 g/dl (32.0-36.5); MEAN CORPUSCULAR VOLUME 84.9 fl (80.0-96.0); MONO # 0.6 10^3/uL (0.0-0.8); NEUTROPHILS # 4.7 10^3/uL (1.5-8.5); NEUTROPHILS % 54.4 % (36.0-66.0); PLATELET COUNT, AUTOMATED 171 10^3/uL (150-450); RED BLOOD COUNT 5.36 10^6/uL (4.30-6.10); WHITE BLOOD COUNT 8.6 10^3/uL (4.0-10.0)
[2022-02-23 08:32] LABS: ERYTHROCYTE SEDIMENTATION RATE 4 mm/hr (0-20)
[2022-02-23 08:40] LABS: ALBUMIN 3.2 GM/DL (3.2-5.2); ALT/SGPT 60 U/L (12-78); BILIRUBIN,DIRECT 0.2 MG/DL (0.0-0.2); BILIRUBIN,TOTAL 0.5 MG/DL (0.2-1.0); C REACTIVE PROTEIN QUANTITATIV < 0.30 MG/DL (0.00-0.30); LIPASE 165 U/L (73-393); TOTAL PROTEIN 6.2 GM/DL (6.4-8.2)
[2022-02-23 08:52] LABS: BLOOD UREA NITROGEN 6 MG/DL (7-18); CALCIUM LEVEL 8.7 MG/DL (8.5-10.1); CARBON DIOXIDE LEVEL 26 MEQ/L (21-32); CHLORIDE LEVEL 108 MEQ/L (98-107); CREATININE FOR GFR 0.83 MG/DL (0.70-1.30); GLOMERULAR FILTRATION RATE > 60.0 (>56); GLUCOSE, FASTING 131 MG/DL (70-100); POTASSIUM SERUM 3.5 MEQ/L (3.5-5.1); SODIUM LEVEL 142 MEQ/L (136-145)
[2022-02-23 09:16] LABS: CK-MB VALUE MASS < 1.0 NG/ML (<3.6); CPK CREATINE PHOSPHOKINASE 99 U/L (39-308); MB/CK RELATIVE INDEX 1.01 (< OR =4)
[2022-02-23 10:35] LABS: CK-MB VALUE MASS < 1.0 NG/ML (<3.6); CPK CREATINE PHOSPHOKINASE 60 U/L (39-308); MB/CK RELATIVE INDEX 1.67 (< OR =4)
[2022-02-23] MEDS ORDERED: BACTRIM 160MG/800MG DS TAB PO ONE (10:35)
[2022-02-23] MEDS ORDERED: BACT800T5 PO (10:37)
[2022-02-23 11:31] VITALS: BP 147/90
== END 2022-02-23 12:16 | disposition home or self-care (01) ==
LOC: M ED 06:55
DX: L03.114 Cellulitis of left upper limb (principal); I10 Essential (primary) hypertension; E11.9 Type 2 diabetes mellitus without complications; G89.29 Other chronic pain; Z99.89 Dependence on other enabling machines and devices; Z87.19 Personal history of other diseases of the digestive system; Z87.440 Personal history of urinary (tract) infections; E66.9 Obesity, unspecified; Z79.899 Other long term (current) drug therapy; Z79.84 Long term (current) use of oral hypoglycemic drugs; Z79.82 Long term (current) use of aspirin; F17.200 Nicotine dependence, unspecified, uncomplicated

== ENCOUNTER → 2022-02-28 | Outpatient (REF) | payer OTHER ==
[~2022-02-28] MED LIST changes: +BACT800T5 PO; +CEPH500C; +PRED20TA
[2022-02-28 17:49] LABS: CRYSTALS, BODY FLUID NONE SEEN (NONE SEEN); SOURCE, BODY FLUID CRYSTALS LFT ELBOW
[2022-02-28 19:07] LABS: SOURCE, BODY FLUID GLUCOSE LFT ELBOW
[2022-02-28 23:14] LABS: APPEARANCE, BODY FLUID HAZY
== END ==
LOC: M LAB REF 17:18
PROVIDERS: ATTEND Orthopaedic Surgery Hand Surgery
DX: M25.522 Pain in left elbow (principal)

== ENCOUNTER → 2022-03-03 | Outpatient (CLI) | payer BC, OTHER ==
[~2022-03-03] MED LIST changes: +PROHANCE 279.3MG/ML 15ML VIAL As Ordered ONE; +PROHANCE 279.3MG/ML 5ML VIAL As Ordered ONE
== END ==
LOC: M RAD 15:28
PROVIDERS: ATTEND Orthopaedic Surgery Hand Surgery
DX: M70.22 Olecranon bursitis, left elbow (principal)
CPT/HCPCS: 73223; A9576

== ENCOUNTER → 2022-03-08 | Outpatient (CLI) | payer BC, OTHER ==
[~2022-03-08] VITALS: Ht 190.5 cm; Wt 127.0 kg
[~2022-03-08] MED LIST changes: +ACET1TAB55 PO; +APAP325T4 PO; +ATOR40TA75 PO; +COLA100C5 PO; +DOCU100C16 PO; +LEVO1TAB39 PO; +LEVO750T14 PO; +MIRA3350 PO; +OXYC-517 PO; +OXYC1TAB23 PO; -PROHANCE 279.3MG/ML 15ML VIAL As Ordered ONE; -PROHANCE 279.3MG/ML 5ML VIAL As Ordered ONE
== END ==
LOC: M LABSMTC 06:00 → EDSTATUS 09:30
PROVIDERS: ATTEND Orthopaedic Surgery Hand Surgery
DX: Z01.812 Encounter for preprocedural laboratory examination (principal); Z20.822 Contact with and (suspected) exposure to COVID-19

== ENCOUNTER 2022-03-13 07:27 | Observation (INO) | payer BC, OTHER ==
[2022-03-13] VITALS (9 sets, daily range): BP systolic 124–163; BP diastolic 74–94
[~2022-03-13] VITALS: Ht 190.5 cm; Wt 127.0 kg
[~2022-03-13 07:27] MED LIST changes: -ACET1TAB55 PO; -APAP325T4 PO; -ATOR40TA75 PO; -COLA100C5 PO; -DOCU100C16 PO; -LEVO1TAB39 PO; -LEVO750T14 PO; -MIRA3350 PO; -OXYC-517 PO; -OXYC1TAB23 PO
[2022-03-13] MEDS ORDERED: LR 1,000 ML IV SCH ×2 (08:25→11:10)
[2022-03-13] MEDS ORDERED: propofoL 200 MG/20 ML VIAL As Ordered ONE ×2 (08:34→10:30)
[2022-03-13] MEDS ORDERED: ONDANSETRON 4MG 2ML VIAL As Ordered ONE (08:34)
[2022-03-13] MEDS ORDERED: fentaNYL 100 MCG/2 ML INJECTION As Ordered ONE (08:34)
[2022-03-13] MEDS ORDERED: LIDOCAINE 2% 100MG/5ML SDV (FOR ANES.) As Ordered ONE (08:34)
[2022-03-13] MEDS ORDERED: MIDAZOLAM INJ 2MG/2ML VIAL (J2250 PER 1MG) As Ordered ONE (08:35)
[2022-03-13] MEDS ORDERED: ROCURONIUM BROMIDE 50 MG/5 ML VIAL As Ordered ONE (09:13)
[2022-03-13] MEDS ORDERED: ZOSYN 3.375GM VIAL As Ordered ONE (09:15)
[2022-03-13] MEDS ORDERED: VANCOMYCIN 1000MG/20ML VIAL As Ordered ONE (09:15)
[2022-03-13] MEDS ORDERED: HYDROmorphone HCL 2MG/ML 1ML VIAL As Ordered ONE (10:05)
[2022-03-13] MEDS ORDERED: SUGAMMADEX SODIUM 500 MG/5 ML VIAL (BRIDION) As Ordered ONE (10:22)
[2022-03-13] MEDS ORDERED: LABETALOL 100MG/20ML VIAL As Ordered ONE (10:33)
[2022-03-13] MEDS ORDERED: diphenhydrAMINE 50MG/ML VIAL (J1200) IV PRN (11:00)
[2022-03-13] MEDS ORDERED: ACETAMINOPHEN TAB 650MG DOSE (2X325MG) PO PRN (11:00)
[2022-03-13] MEDS ORDERED: ONDANSETRON 4MG 2ML VIAL IV PRN ×2 (11:00→11:10)
[2022-03-13] MEDS ORDERED: oxyCODONE 5MG TAB PO PRN (11:00)
[2022-03-13] MEDS ORDERED: VANCOMYCIN HCL 1,000 MG, VIAL MATE ADAPTER 1 EACH in D5W 250 ML IV SCH (11:00)
[2022-03-13] MEDS ORDERED: zolPIDEM TARTRATE 5 MG TAB PO PRN (11:00)
[2022-03-13] MEDS ORDERED: HYDROmorphone 2 MG TAB PO PRN (11:00)
[2022-03-13] MEDS ORDERED: MORPHINE 4 MG/ML 1ML VIAL/SYRINGE IV PRN (11:00)
[2022-03-13] MEDS: KETOROLAC 30 MG/ML 1ML VIAL IV SCH ×3 (11:00→23:09)
[2022-03-13] MEDS ORDERED: SENNA 8.6 MG TAB (SENOKOT) PO PRN (11:00)
[2022-03-13] MEDS ORDERED: IBUPROFEN 600MG TAB PO PRN (11:00)
[2022-03-13] MEDS ORDERED: KETOROLAC 30 MG/ML 1ML VIAL As Ordered ONE (11:09)
[2022-03-13] MEDS: fentaNYL 100 MCG/2 ML INJECTION IV PRN ×4 (11:22→11:38)
[2022-03-13] MEDS ORDERED: GLUCAGON INJ 1MG VIAL SC PRN (11:35)
[2022-03-13] MEDS ORDERED: DEXTROSE 50% 50 ML SYRINGE IV PRN (11:35)
[2022-03-13] MEDS ORDERED: GLUCOSE 4GM CHEW TABLET PO PRN (11:35)
[2022-03-13] MEDS: oxyCODONE 5MG TAB PO PRN ×2 (11:44→12:29)
[2022-03-13] MEDS ORDERED: MORPHINE 2 MG/ML 1ML VIAL IV PRN (11:50)
[2022-03-13 12:37] LABS: HEMATOCRIT 42.2 % (42.0-52.0); HEMOGLOBIN 14.3 g/dl (13.5-17.5); MEAN CORPUSCULAR HEMOGLOBIN 29.2 pg (27.0-33.0); MEAN CORPUSCULAR HGB CONC 33.9 g/dl (32.0-36.5); MEAN CORPUSCULAR VOLUME 86.3 fl (80.0-96.0); PLATELET COUNT, AUTOMATED 152 10^3/uL (150-450); RED BLOOD COUNT 4.89 10^6/uL (4.30-6.10); WHITE BLOOD COUNT 6.3 10^3/uL (4.0-10.0)
[2022-03-13 12:39] LABS: ALBUMIN 3.1 GM/DL (3.2-5.2); ALT/SGPT 70 U/L (12-78); BILIRUBIN,TOTAL 0.5 MG/DL (0.2-1.0); BLOOD UREA NITROGEN 7 MG/DL (7-18); CALCIUM LEVEL 8.8 MG/DL (8.5-10.1); CARBON DIOXIDE LEVEL 26 MEQ/L (21-32); CHLORIDE LEVEL 111 MEQ/L (98-107); CREATININE FOR GFR 0.87 MG/DL (0.70-1.30); GLOMERULAR FILTRATION RATE > 60.0 (>56); GLUCOSE, FASTING 122 MG/DL (70-100); POTASSIUM SERUM 4.1 MEQ/L (3.5-5.1); SODIUM LEVEL 143 MEQ/L (136-145)
[2022-03-13 12:40] LABS: INR 0.9; PARTIAL THROMBOPLASTIN TIME 28.2 SECONDS (25.9-37.0); PROTHROMBIN TIME 12.6 SECONDS (12.7-14.5)
[2022-03-13 12:43] LABS: D-DIMER QUANT 1125.25 ng/ml (<500)
[2022-03-13 13:04] LABS: BILIRUBIN,DIRECT < 0.1 MG/DL (0.0-0.2); C REACTIVE PROTEIN QUANTITATIV < 0.30 MG/DL (0.00-0.30); FERRITIN 495 NG/ML (26-388); LDH LACTATE DEHYDROGENASE 215 U/L (87-241)
[2022-03-13] MEDS: INSULIN LISPRO (NovoLOG) PER UNIT SC SCH ×3 (13:38→21:00)
[2022-03-13] MEDS: PIPERACILLIN/TAZOBACTAM SOD 3.375 GM in D5W MINI-BAG PLUS 50 ML IV SCH ×2 (16:32→23:09)
[2022-03-13] MEDS: VANCOMYCIN HCL 750 MG, VIAL MATE ADAPTER 1 EACH in D5W 250 ML IV SCH ×2 (18:54→21:03)
[2022-03-13] MEDS: DOCUSATE SODIUM 100MG CAPSULE PO SCH (21:00)
[2022-03-14 03:34] VITALS: O2SAT 98
[2022-03-14] MEDS: KETOROLAC 30 MG/ML 1ML VIAL IV SCH (04:21)
[2022-03-14] MEDS: PIPERACILLIN/TAZOBACTAM SOD 3.375 GM in D5W MINI-BAG PLUS 50 ML IV SCH ×4 (04:25→22:00)
[2022-03-14 04:26] VITALS: BP 157/81
[2022-03-14 06:48] LABS: HEMATOCRIT 37.4 % (42.0-52.0); HEMOGLOBIN 12.9 g/dl (13.5-17.5); MEAN CORPUSCULAR HEMOGLOBIN 30.1 pg (27.0-33.0); MEAN CORPUSCULAR HGB CONC 34.5 g/dl (32.0-36.5); MEAN CORPUSCULAR VOLUME 87.2 fl (80.0-96.0); PLATELET COUNT, AUTOMATED 138 10^3/uL (150-450); RED BLOOD COUNT 4.29 10^6/uL (4.30-6.10); WHITE BLOOD COUNT 5.6 10^3/uL (4.0-10.0)
[2022-03-14 07:27] LABS: BLOOD UREA NITROGEN 6 MG/DL (7-18); CHLORIDE LEVEL 110 MEQ/L (98-107); CREATININE FOR GFR 0.86 MG/DL (0.70-1.30); GLOMERULAR FILTRATION RATE > 60.0 (>56); GLUCOSE, FASTING 105 MG/DL (70-100); POTASSIUM SERUM 3.8 MEQ/L (3.5-5.1); SODIUM LEVEL 142 MEQ/L (136-145)
[2022-03-14 07:28] LABS: C REACTIVE PROTEIN QUANTITATIV < 0.30 MG/DL (0.00-0.30); CALCIUM LEVEL 7.9 MG/DL (8.5-10.1); CARBON DIOXIDE LEVEL 29 mmol/L (20-29)
[2022-03-14] MEDS: ATORVASTATIN 20 MG TAB PO SCH (08:17)
[2022-03-14] MEDS: LOSARTAN 25 MG TAB PO SCH (08:17)
[2022-03-14] MEDS: ENOXAPARIN 40MG/0.4ML SYRINGE (J1650 PER 10MG) SC SCH (08:17)
[2022-03-14] MEDS: INSULIN LISPRO (NovoLOG) PER UNIT SC SCH ×4 (08:18→20:27)
[2022-03-14] MEDS: VANCOMYCIN HCL 750 MG, VIAL MATE ADAPTER 1 EACH in D5W 250 ML IV SCH ×4 (08:18→22:18)
[2022-03-14] MEDS: DOCUSATE SODIUM 100MG CAPSULE PO SCH ×2 (08:19→20:27)
[2022-03-14] MEDS ORDERED: IBUPROFEN 600MG TAB PO PRN (11:00)
[2022-03-14 12:00] VITALS: BP 168/105
[2022-03-14 12:58] VITALS: BP 152/94
[2022-03-14 19:56] VITALS: BP 156/96
[2022-03-15] MEDS: PIPERACILLIN/TAZOBACTAM SOD 3.375 GM in D5W MINI-BAG PLUS 50 ML IV SCH ×2 (03:55→12:32)
[2022-03-15 03:56] VITALS: BP 152/94
[2022-03-15 06:40] LABS: HEMATOCRIT 39.9 % (42.0-52.0); HEMOGLOBIN 13.5 g/dl (13.5-17.5); MEAN CORPUSCULAR HEMOGLOBIN 29.3 pg (27.0-33.0); MEAN CORPUSCULAR HGB CONC 33.8 g/dl (32.0-36.5); MEAN CORPUSCULAR VOLUME 86.6 fl (80.0-96.0); PLATELET COUNT, AUTOMATED 152 10^3/uL (150-450); RED BLOOD COUNT 4.61 10^6/uL (4.30-6.10); WHITE BLOOD COUNT 6.2 10^3/uL (4.0-10.0)
[2022-03-15 07:08] LABS: BLOOD UREA NITROGEN 5 MG/DL (7-18); CALCIUM LEVEL 8.4 MG/DL (8.5-10.1); CARBON DIOXIDE LEVEL 28 MEQ/L (21-32); CHLORIDE LEVEL 111 MEQ/L (98-107); CREATININE FOR GFR 0.84 MG/DL (0.70-1.30); GLOMERULAR FILTRATION RATE > 60.0 (>56); GLUCOSE, FASTING 106 MG/DL (70-100); POTASSIUM SERUM 3.7 MEQ/L (3.5-5.1); SODIUM LEVEL 143 MEQ/L (136-145)
[2022-03-15] MEDS ORDERED: ACET1TAB55 PO (08:15)
[2022-03-15] MEDS ORDERED: OXYC-517 PO (08:15)
[2022-03-15] MEDS ORDERED: COLA100C5 PO (08:15)
[2022-03-15] MEDS: DOCUSATE SODIUM 100MG CAPSULE PO SCH (09:00)
[2022-03-15] MEDS: ATORVASTATIN 20 MG TAB PO SCH (09:20)
[2022-03-15 09:21] VITALS: BP 157/81
[2022-03-15] MEDS: LOSARTAN 25 MG TAB PO SCH (09:21)
[2022-03-15] MEDS: VANCOMYCIN HCL 750 MG, VIAL MATE ADAPTER 1 EACH in D5W 250 ML IV SCH ×2 (09:21→11:07)
[2022-03-15] MEDS: INSULIN LISPRO (NovoLOG) PER UNIT SC SCH ×2 (09:22→12:00)
[2022-03-15] MEDS: ENOXAPARIN 40MG/0.4ML SYRINGE (J1650 PER 10MG) SC SCH (09:22)
[2022-03-15 09:26] LABS: VANCOMYCIN RANDOM 15.2 UG/ML
== END 2022-03-15 14:05 | disposition home or self-care (01) ==
LOC: M SDC 07:27 → M 4MAIN 07:28 → M SDC 13:00 → M 4MAIN 13:00 → M SDC 03-15 14:05
PROVIDERS: ADMIT Internal Medicine; ATTEND Internal Medicine
DX: M70.22 Olecranon bursitis, left elbow (principal); I10 Essential (primary) hypertension; E78.5 Hyperlipidemia, unspecified; E11.9 Type 2 diabetes mellitus without complications; K21.9 Gastro-esophageal reflux disease without esophagitis; G47.33 Obstructive sleep apnea (adult) (pediatric); E66.9 Obesity, unspecified; F17.220 Nicotine dependence, chewing tobacco, uncomplicated; Z79.899 Other long term (current) drug therapy; Z79.84 Long term (current) use of oral hypoglycemic drugs; Z79.82 Long term (current) use of aspirin
CPT/HCPCS: 24105; 36415; 80048; 80053; 80202; 82248; 82550; 82728; 83615; 84484; 85027; 85379; 85384; 85610; 85730; 86140; 87070; 87075; 87205; 88304; 96365; 96366; 96367; 96372; 96375; 96376; 97161; 97165; 97530; 97535; J1170; J1650; J1815; J1885; J2250; J2270; J2405; J2543; J3010; J3370

== ENCOUNTER → 2022-03-29 | Outpatient (CLI) | payer BC, OTHER ==
[~2022-03-29] MED LIST changes: +ACET1TAB55 PO; +COLA100C5 PO; +OXYC-517 PO
[2022-03-29 15:16] LABS: ALBUMIN 3.3 GM/DL (3.2-5.2); ALT/SGPT 47 U/L (12-78); BILIRUBIN,TOTAL 0.6 MG/DL (0.2-1.0); BLOOD UREA NITROGEN 5 MG/DL (7-18); CALCIUM LEVEL 8.5 MG/DL (8.5-10.1); CARBON DIOXIDE LEVEL 29 MEQ/L (21-32); CHLORIDE LEVEL 107 MEQ/L (98-107); CHOLESTEROL LEVEL 102 MG/DL (<200); CREATININE FOR GFR 0.92 MG/DL (0.70-1.30); GLOMERULAR FILTRATION RATE > 60.0 (>56); GLUCOSE, FASTING 77 MG/DL (70-100); HDL CHOLESTEROL 30 MG/DL (>40); LDL CHOLESTEROL 39 MG/DL (<100); NON-HDL-C 72 MG/DL; POTASSIUM SERUM 3.5 MEQ/L (3.5-5.1); SODIUM LEVEL 141 MEQ/L (136-145); TOTAL PROTEIN 6.6 GM/DL (6.4-8.2); TRIGLYCERIDES LEVEL 163 MG/DL (<150)
[2022-03-29 17:29] LABS: HEMOGLOBIN A1c 6.2 %
== END ==
LOC: M PLALAB 10:06
PROVIDERS: ATTEND Family Medicine
DX: E78.5 Hyperlipidemia, unspecified (principal); E11.9 Type 2 diabetes mellitus without complications; I10 Essential (primary) hypertension; G47.30 Sleep apnea, unspecified

== ENCOUNTER → 2022-04-04 | Outpatient (REF) | payer BC, OTHER ==
[2022-04-04 18:13] LABS: SOURCE, BODY FLUID LFT ELBOW; SYNOVIAL FLUID COLOR AMBER (COLORLESS)
[2022-04-04 18:25] LABS: CRYSTALS, BODY FLUID NONE SEEN (NONE SEEN); SOURCE, BODY FLUID CRYSTALS LFT ELBOW
== END ==
LOC: M LAB REF 17:08
PROVIDERS: ATTEND Orthopaedic Surgery Hand Surgery
DX: M70.22 Olecranon bursitis, left elbow (principal)

== ENCOUNTER 2022-04-17 16:54 | Inpatient (IN) | payer BC, OTHER ==
[~2022-04-17] VITALS: Ht 190.5 cm; Wt 122.9 kg
[~2022-04-17 16:54] MED LIST changes: -APAP325T4 PO; -ATOR40TA75 PO; -DOCU100C16 PO; -LEVO1TAB39 PO; -LEVO750T14 PO; -MIRA3350 PO; -OXYC1TAB23 PO
[2022-04-17] MEDS ORDERED: MOM 30ML SUSPENSION UDC PO PRN (17:35)
[2022-04-17] MEDS ORDERED: ACETAMINOPHEN TAB 650MG DOSE (2X325MG) PO PRN ×2 (17:35→21:45)
[2022-04-17] MEDS ORDERED: MAALOX 30 ML SUSP *UDC PO PRN (17:35)
[2022-04-17] MEDS ORDERED: GLUCAGON INJ 1MG VIAL SC PRN (18:25)
[2022-04-17] MEDS ORDERED: GLUCOSE 4GM CHEW TABLET PO PRN (18:25)
[2022-04-17] MEDS ORDERED: DEXTROSE 50% 50 ML SYRINGE IV PRN (18:25)
[2022-04-17] MEDS ORDERED: ONDANSETRON 4MG 2ML VIAL As Ordered ONE (18:46)
[2022-04-17] MEDS ORDERED: ROCURONIUM BROMIDE 50 MG/5 ML VIAL As Ordered ONE (18:46)
[2022-04-17] MEDS ORDERED: MIDAZOLAM INJ 2MG/2ML VIAL (J2250 PER 1MG) As Ordered ONE (18:46)
[2022-04-17] MEDS ORDERED: dexameTHASONE 4 MG/ML 1ML VIAL (J1100 PER 1MG) As Ordered ONE (18:46)
[2022-04-17] MEDS ORDERED: fentaNYL 100 MCG/2 ML INJECTION As Ordered ONE (18:46)
[2022-04-17] MEDS ORDERED: propofoL 200 MG/20 ML VIAL As Ordered ONE (18:46)
[2022-04-17] MEDS ORDERED: LIDOCAINE 2% 100MG/5ML SDV (FOR ANES.) As Ordered ONE (18:46)
[2022-04-17] MEDS ORDERED: LevoFLOXacin 500MG/100ML IV BAG (J1956 PER 250MG) As Ordered ONE (19:47)
[2022-04-17] MEDS ORDERED: ceFAZolin 1GM VIAL (J0690 PER 500MG) As Ordered ONE (20:00)
[2022-04-17 20:25] LABS: ALBUMIN 3.5 GM/DL (3.2-5.2); ALT/SGPT 68 U/L (12-78); BILIRUBIN,TOTAL 0.4 MG/DL (0.2-1.0); BLOOD UREA NITROGEN 5 MG/DL (7-18); CALCIUM LEVEL 8.7 MG/DL (8.5-10.1); CARBON DIOXIDE LEVEL 28 MEQ/L (21-32); CHLORIDE LEVEL 107 MEQ/L (98-107); CREATININE FOR GFR 1.07 MG/DL (0.70-1.30); GLOMERULAR FILTRATION RATE > 60.0 (>56); GLUCOSE, FASTING 98 MG/DL (70-100); POTASSIUM SERUM 3.6 MEQ/L (3.5-5.1); SODIUM LEVEL 140 MEQ/L (136-145); TOTAL PROTEIN 6.8 GM/DL (6.4-8.2)
[2022-04-17] MEDS ORDERED: cefTRIAXone SOD 1GM VIAL (J0696 PER 250MG) As Ordered ONE (20:47)
[2022-04-17] MEDS ORDERED: DOCUSATE SODIUM 100MG CAPSULE PO SCH (21:00)
[2022-04-17] MEDS: INSULIN LISPRO (NovoLOG) PER UNIT SC SCH (21:00)
[2022-04-17] MEDS ORDERED: SUGAMMADEX SODIUM 500 MG/5 ML VIAL (BRIDION) As Ordered ONE (21:08)
[2022-04-17] MEDS ORDERED: HYDROmorphone HCL 2MG/ML 1ML VIAL As Ordered ONE (21:11)
[2022-04-17] MEDS ORDERED: fentaNYL 100 MCG/2 ML INJECTION IV PRN (21:15)
[2022-04-17] MEDS ORDERED: LR 1,000 ML IV SCH (21:15)
[2022-04-17] MEDS ORDERED: METOCLOPRAMIDE INJ 10MG/2ML VIAL (J2765 PER 1) IV PRN (21:15)
[2022-04-17] MEDS ORDERED: ONDANSETRON 4MG 2ML VIAL IV PRN ×2 (21:15→21:45)
[2022-04-17] MEDS ORDERED: oxyCODONE 5MG TAB PO PRN (21:15)
[2022-04-17] MEDS ORDERED: KETOROLAC 60MG 2ML VIAL As Ordered ONE (21:18)
[2022-04-17] MEDS ORDERED: BACITRACIN OINTMENT 30GM TUBE As Ordered ONE (21:23)
[2022-04-17] MEDS ORDERED: zolPIDEM TARTRATE 5 MG TAB PO PRN (21:45)
[2022-04-17] MEDS ORDERED: SENNA 8.6 MG TAB (SENOKOT) PO PRN (21:45)
[2022-04-17] MEDS ORDERED: HYDROmorphone 2 MG TAB PO PRN (21:45)
[2022-04-17] MEDS ORDERED: diphenhydrAMINE 50MG/ML VIAL (J1200) IV PRN (21:45)
[2022-04-17] MEDS ORDERED: MORPHINE 4 MG/ML 1ML VIAL/SYRINGE IV PRN (21:45)
[2022-04-17 22:34] LABS: SOURCE, BODY FLUID LFT ELBOW; SYNOVIAL FLUID COLOR AMBER (COLORLESS)
[2022-04-17 22:36] LABS: CRYSTALS, BODY FLUID NONE SEEN (NONE SEEN); SOURCE, BODY FLUID CRYSTALS LFT ELBOW
[2022-04-17 22:37] VITALS: BP 148/72
[2022-04-17] MEDS: oxyCODONE 5MG TAB PO PRN (22:50)
[2022-04-17 23:07] VITALS: BP 144/83
[2022-04-17 23:57] VITALS: BP 142/86
[2022-04-18 00:51] VITALS: BP 132/76
[2022-04-18] MEDS ORDERED: LEVO1TAB39 PO (01:17)
[2022-04-18] MEDS ORDERED: HYDR-3490 PO (01:17)
[2022-04-18] MEDS ORDERED: APAP325T4 PO (01:17)
[2022-04-18] MEDS ORDERED: ATOR40TA75 PO (01:17)
[2022-04-18] MEDS ORDERED: DOCU100C16 PO (01:17)
[2022-04-18] MEDS ORDERED: HOME MED LIST COMPLETE! XX SCH (01:20)
[2022-04-18 05:37] LABS: BASO % 0.6 % (0.0-1.0); EOS % 0.2 % (0.0-3.0); HEMATOCRIT 41.2 % (42.0-52.0); HEMOGLOBIN 14.1 g/dl (13.5-17.5); LYMPH # 1.3 10^3/uL (1.5-5.0); LYMPH % 25.1 % (24.0-44.0); MEAN CORPUSCULAR HEMOGLOBIN 29.4 pg (27.0-33.0); MEAN CORPUSCULAR HGB CONC 34.2 g/dl (32.0-36.5); MONO # 0.2 10^3/uL (0.0-0.8); MONO % 3.3 % (2.0-8.0); NEUTROPHILS # 3.6 10^3/uL (1.5-8.5); NEUTROPHILS % 70.6 % (36.0-66.0); PLATELET COUNT, AUTOMATED 177 10^3/uL (150-450); RED BLOOD COUNT 4.79 10^6/uL (4.30-6.10); WHITE BLOOD COUNT 5.1 10^3/uL (4.0-10.0)
[2022-04-18] MEDS: IBUPROFEN 600MG TAB PO PRN (06:04)
[2022-04-18 06:15] VITALS: BP 137/82
[2022-04-18 06:31] LABS: BLOOD UREA NITROGEN 9 MG/DL (7-18); CALCIUM LEVEL 8.4 MG/DL (8.5-10.1); CARBON DIOXIDE LEVEL 25 MEQ/L (21-32); CHLORIDE LEVEL 107 MEQ/L (98-107); CREATININE FOR GFR 1.07 MG/DL (0.70-1.30); GLOMERULAR FILTRATION RATE > 60.0 (>56); GLUCOSE, FASTING 161 MG/DL (70-100); MAGNESIUM LEVEL 1.7 MG/DL (1.8-2.4); POTASSIUM SERUM 4.1 MEQ/L (3.5-5.1); SODIUM LEVEL 137 MEQ/L (136-145)
[2022-04-18] MEDS ORDERED: MORPHINE 4 MG/ML 1ML VIAL/SYRINGE IV PRN (07:50)
[2022-04-18] MEDS: ATORVASTATIN 20 MG TAB PO SCH (07:56)
[2022-04-18] MEDS: ASPIRIN 81MG ENTERIC TABLET PO SCH (07:57)
[2022-04-18] MEDS: LOSARTAN 25 MG TAB PO SCH (07:58)
[2022-04-18] MEDS: INSULIN LISPRO (NovoLOG) PER UNIT SC SCH ×4 (07:59→21:00)
[2022-04-18] MEDS: HEPARIN SOD (PORCINE) 5000UNITS/ML 1ML VIAL/SYRINGE SC SCH ×2 (07:59→20:36)
[2022-04-18] MEDS ORDERED: DOCUSATE SODIUM 100MG CAPSULE PO SCH (09:00)
[2022-04-18 14:00] VITALS: BP 144/89
[2022-04-18] MEDS: oxyCODONE 5MG TAB PO PRN (19:59)
[2022-04-18] MEDS ORDERED: cefTRIAXone SOD 2 GM in D5W MINI-BAG PLUS 50 ML IV SCH (21:00)
[2022-04-18] MEDS ORDERED: cefTRIAXone SOD 1 GM in D5W MINI-BAG PLUS 50 ML IV SCH (21:00)
[2022-04-18 22:00] VITALS: BP 140/95
[2022-04-19] MEDS: IBUPROFEN 600MG TAB PO PRN ×2 (05:15→12:41)
[2022-04-19 05:58] LABS: BASO # 0.1 10^3/uL (0.0-0.2); EOS # 0.2 10^3/uL (0.0-0.5); EOS % 2.3 % (0.0-3.0); HEMATOCRIT 40.7 % (42.0-52.0); HEMOGLOBIN 13.7 g/dl (13.5-17.5); LYMPH # 3.5 10^3/uL (1.5-5.0); LYMPH % 45.6 % (24.0-44.0); MEAN CORPUSCULAR HEMOGLOBIN 29.3 pg (27.0-33.0); MEAN CORPUSCULAR HGB CONC 33.7 g/dl (32.0-36.5); MEAN CORPUSCULAR VOLUME 87.2 fl (80.0-96.0); MONO # 0.5 10^3/uL (0.0-0.8); MONO % 6.1 % (2.0-8.0); NEUTROPHILS # 3.5 10^3/uL (1.5-8.5); NEUTROPHILS % 44.7 % (36.0-66.0); PLATELET COUNT, AUTOMATED 161 10^3/uL (150-450); RED BLOOD COUNT 4.67 10^6/uL (4.30-6.10); WHITE BLOOD COUNT 7.8 10^3/uL (4.0-10.0)
[2022-04-19 06:00] VITALS: BP 134/96
[2022-04-19 06:34] LABS: BLOOD UREA NITROGEN 11 MG/DL (7-18); CALCIUM LEVEL 8.3 MG/DL (8.5-10.1); CARBON DIOXIDE LEVEL 30 MEQ/L (21-32); CHLORIDE LEVEL 105 MEQ/L (98-107); CREATININE FOR GFR 0.88 MG/DL (0.70-1.30); GLOMERULAR FILTRATION RATE > 60.0 (>56); GLUCOSE, FASTING 128 MG/DL (70-100); MAGNESIUM LEVEL 1.8 MG/DL (1.8-2.4); POTASSIUM SERUM 3.4 MEQ/L (3.5-5.1); SODIUM LEVEL 140 MEQ/L (136-145)
[2022-04-19] MEDS ORDERED: POTASSIUM CHLORIDE 10MEQ SR TABLET PO ONE (08:05)
[2022-04-19] MEDS: INSULIN LISPRO (NovoLOG) PER UNIT SC SCH ×2 (08:30→12:40)
[2022-04-19] MEDS: HEPARIN SOD (PORCINE) 5000UNITS/ML 1ML VIAL/SYRINGE SC SCH (08:30)
[2022-04-19 08:31] VITALS: BP 134/96
[2022-04-19] MEDS: LOSARTAN 25 MG TAB PO SCH (08:31)
[2022-04-19] MEDS: ATORVASTATIN 20 MG TAB PO SCH (08:31)
[2022-04-19] MEDS: ASPIRIN 81MG ENTERIC TABLET PO SCH (08:31)
[2022-04-19 14:00] VITALS: BP 141/105
[2022-04-19] MEDS ORDERED: LEVO750T14 PO (16:15)
[2022-04-19] MEDS ORDERED: MIRA3350 PO (16:15)
[2022-04-19] MEDS ORDERED: OXYC1TAB23 PO (16:15)
== END 2022-04-19 17:25 | disposition home or self-care (01) | DRG 315 ==
LOC: M MS5PR 17:45
PROVIDERS: ADMIT Internal Medicine; ATTEND Internal Medicine
PROC: 0MB40ZZ Excision of Left Elbow Bursa and Ligament, Open Approach (ICD-10-PCS; principal; 2022-04-17 20:00)
DX: M71.122 Other infective bursitis, left elbow (principal); I10 Essential (primary) hypertension; E11.9 Type 2 diabetes mellitus without complications; E78.5 Hyperlipidemia, unspecified; G47.33 Obstructive sleep apnea (adult) (pediatric); E66.9 Obesity, unspecified; K21.9 Gastro-esophageal reflux disease without esophagitis; B96.89 Other specified bacterial agents as the cause of diseases classified elsewhere; Z86.16 Personal history of COVID-19; Z79.82 Long term (current) use of aspirin; Z79.899 Other long term (current) drug therapy; Z79.84 Long term (current) use of oral hypoglycemic drugs; Z68.33 Body mass index [BMI] 33.0-33.9, adult; Z71.3 Dietary counseling and surveillance

== ENCOUNTER → 2022-04-17 | Outpatient (REF) | payer BC, OTHER ==
[~2022-04-17] MED LIST changes: +APAP325T4 PO; +ATOR40TA75 PO; +DOCU100C16 PO; +LEVO1TAB39 PO; +LEVO750T14 PO; +MIRA3350 PO; +OXYC1TAB23 PO
[2022-04-17 17:44] LABS: BASO # 0.1 10^3/uL (0.0-0.2); EOS # 0.3 10^3/uL (0.0-0.5); HEMATOCRIT 44.2 % (42.0-52.0); HEMOGLOBIN 14.8 g/dl (13.5-17.5); LYMPH # 2.8 10^3/uL (1.5-5.0); LYMPH % 37.1 % (24.0-44.0); MEAN CORPUSCULAR HEMOGLOBIN 29.2 pg (27.0-33.0); MEAN CORPUSCULAR HGB CONC 33.5 g/dl (32.0-36.5); MEAN CORPUSCULAR VOLUME 87.2 fl (80.0-96.0); MONO # 0.5 10^3/uL (0.0-0.8); MONO % 6.1 % (2.0-8.0); NEUTROPHILS % 51.7 % (36.0-66.0); PLATELET COUNT, AUTOMATED 190 10^3/uL (150-450); RED BLOOD COUNT 5.07 10^6/uL (4.30-6.10); WHITE BLOOD COUNT 7.7 10^3/uL (4.0-10.0)
[2022-04-17 18:32] LABS: ALBUMIN 3.6 GM/DL (3.2-5.2); ALT/SGPT 66 U/L (12-78); BILIRUBIN,TOTAL 0.4 MG/DL (0.2-1.0); BLOOD UREA NITROGEN 6 MG/DL (7-18); CALCIUM LEVEL 9.3 MG/DL (8.5-10.1); CARBON DIOXIDE LEVEL 26 MEQ/L (21-32); CHLORIDE LEVEL 107 MEQ/L (98-107); CREATININE FOR GFR 1.02 MG/DL (0.70-1.30); GLOMERULAR FILTRATION RATE > 60.0 (>56); GLUCOSE, FASTING 97 MG/DL (70-100); MAGNESIUM LEVEL 1.9 MG/DL (1.8-2.4); POTASSIUM SERUM 3.8 MEQ/L (3.5-5.1); SODIUM LEVEL 141 MEQ/L (136-145); TOTAL PROTEIN 6.9 GM/DL (6.4-8.2)
[2022-04-17 18:43] LABS: ERYTHROCYTE SEDIMENTATION RATE 10 mm/hr (0-20)
== END ==
LOC: M LAB REF 17:20
PROVIDERS: ATTEND Orthopaedic Surgery Hand Surgery
DX: M70.22 Olecranon bursitis, left elbow (principal)

== ENCOUNTER → 2022-05-17 | Outpatient (CLI) | payer BC, OTHER ==
[~2022-05-17] MED LIST changes: +APAP325T4 PO; +ATOR40TA75 PO; +DOCU100C16 PO; +LEVO1TAB39 PO; +LEVO750T14 PO; +MIRA3350 PO; +OXYC1TAB23 PO
[2022-05-17 14:51] LABS: CREATININE, URINE 71.6 MG/DL; MALB URINE SIEMENS 7.9 MG/L
== END ==
LOC: M PLALAB 09:40
DX: E11.9 Type 2 diabetes mellitus without complications (principal)

== ENCOUNTER → 2022-05-25 | Outpatient (REF) | payer OTHER ==
[2022-05-25 14:45] LABS: CRYSTALS, BODY FLUID URIC ACID (NONE SEEN)
[2022-05-25 14:46] LABS: SOURCE, BODY FLUID CRYSTALS LFT ELBOW
== END ==
LOC: M LAB REF 13:26
PROVIDERS: ATTEND Orthopaedic Surgery Hand Surgery
DX: M70.22 Olecranon bursitis, left elbow (principal)

== ENCOUNTER → 2022-08-30 | Outpatient (REF) | payer OTHER | LOC: M SFHCPLAZ 09:23 | PROVIDERS: ATTEND Family Medicine | DX: Z53.9 Procedure and treatment not carried out, unspecified reason (principal) ==

== ENCOUNTER → 2022-09-04 | Outpatient (CLI) | payer OTHER ==
[2022-09-04 12:04] LABS: CREATININE, URINE 221.9 MG/DL; MAU/CREAT RATIO 2.7 MCG/MG (0.0-30.0)
[2022-09-04 12:29] LABS: HEMOGLOBIN A1c 5.7 % (4.0-6.0)
== END ==
LOC: M PLALAB 08:30
PROVIDERS: ATTEND Student in an Organized Health Care Education/Training Program
DX: E11.9 Type 2 diabetes mellitus without complications (principal); I10 Essential (primary) hypertension

== ENCOUNTER → 2022-10-11 | Outpatient (CLI) | payer BC, OTHER | LOC: M RAD 08:38 | PROVIDERS: ATTEND Student in an Organized Health Care Education/Training Program | DX: Z12.2 Encounter for screening for malignant neoplasm of respiratory organs (principal); F17.210 Nicotine dependence, cigarettes, uncomplicated ==

== ENCOUNTER → 2023-04-25 | Outpatient (CLI) | payer BC, OTHER ==
[~2023-04-25] MED LIST changes: +MECL-209 PO; -MECL1TAB31 PO
[2023-04-25 15:13] LABS: BLOOD UREA NITROGEN 9 MG/DL (9-23); CARBON DIOXIDE LEVEL 33 MMOL/L (20-31); CHLORIDE LEVEL 107 MMOL/L (98-107); CREATININE FOR GFR 0.92 MG/DL (0.70-1.30); GLOMERULAR FILTRATION RATE > 60.0 (>56); GLUCOSE, FASTING 104 MG/DL (60-100); POTASSIUM SERUM 4.7 MMOL/L (3.5-5.1); SODIUM LEVEL 143 MMOL/L (136-145)
[2023-04-25 15:40] LABS: HEMOGLOBIN A1c 5.6 % (4.0-6.0)
[2023-04-25 15:46] LABS: HIV 1&2 SCREEN NEGATIVE (NEGATIVE)
[2023-04-25 15:54] LABS: HEPATITIS C VIRUS ABY INDEX 0.14 INDEX (<0.8)
[2023-04-25 16:51] LABS: GC DNA AMPLIFICATION NEGATIVE (NEGATIVE)
== END ==
LOC: M PLALAB 10:16
PROVIDERS: ATTEND Student in an Organized Health Care Education/Training Program
DX: E11.9 Type 2 diabetes mellitus without complications (principal); Z11.3 Encounter for screening for infections with a predominantly sexual mode of transmission

== ENCOUNTER → 2023-07-27 | Outpatient (CLI) | payer BC, OTHER ==
[2023-07-27 13:01] LABS: CHOLESTEROL RISK RATIO 3.09 (<5); LDL CHOLESTEROL 35.2 MG/DL (<100)
[2023-07-27 14:19] LABS: HEMOGLOBIN A1c 5.7 % (4.0-6.0)
== END ==
LOC: M PLALAB 08:13
PROVIDERS: ATTEND Student in an Organized Health Care Education/Training Program
DX: E11.9 Type 2 diabetes mellitus without complications (principal); E78.5 Hyperlipidemia, unspecified

== ENCOUNTER → 2023-09-07 | Outpatient (CLI) | payer BC, OTHER ==
[2023-09-07 16:36] LABS: ALBUMIN 3.6 G/DL (3.2-5.2); ALKALINE PHOSPHATASE 58 U/L (46-116); ALT/SGPT 50 U/L (7.0-40); AST/SGOT 28 U/L (<34); BLOOD UREA NITROGEN 9 MG/DL (9-23); CALCIUM LEVEL 8.9 MG/DL (8.5-10.1); CARBON DIOXIDE LEVEL 33 MMOL/L (20-31); CHLORIDE LEVEL 107 MMOL/L (98-107); CREATININE FOR GFR 0.98 MG/DL (0.70-1.30); GLOMERULAR FILTRATION RATE > 60.0 (>56); GLUCOSE, FASTING 102 MG/DL (60-100); POTASSIUM SERUM 3.9 MMOL/L (3.5-5.1); SODIUM LEVEL 144 MMOL/L (136-145); TOTAL PROTEIN 6.2 G/DL (5.7-8.2)
[2023-09-07 16:37] LABS: PSA SCREENING 0.44 NG/ML (< 4.00)
== END ==
LOC: M PLALAB 13:41
PROVIDERS: ATTEND Student in an Organized Health Care Education/Training Program
DX: Z00.00 Encounter for general adult medical examination without abnormal findings (principal)
CPT/HCPCS: 36415; 80053; G0103

== ENCOUNTER → 2023-11-02 | Outpatient (CLI) | payer BC | LOC: M RAD 15:25 | PROVIDERS: ATTEND Student in an Organized Health Care Education/Training Program | DX: Z12.2 Encounter for screening for malignant neoplasm of respiratory organs (principal); F17.210 Nicotine dependence, cigarettes, uncomplicated ==

== ENCOUNTER → 2023-11-16 | Outpatient (CLI) | payer BC ==
[2023-11-16 15:51] LABS: HEMOGLOBIN A1c 5.8 % (4.0-6.0)
== END ==
LOC: M PLALAB 14:01
PROVIDERS: ATTEND Student in an Organized Health Care Education/Training Program
DX: E11.9 Type 2 diabetes mellitus without complications (principal)

== ENCOUNTER → 2023-12-05 | Outpatient (CLI) | payer BC | LOC: M RAD 13:17 | PROVIDERS: ATTEND Student in an Organized Health Care Education/Training Program | DX: E11.9 Type 2 diabetes mellitus without complications (principal) ==

== ENCOUNTER → 2024-09-11 | Outpatient (CLI) | payer BC, OTHER ==
[~2024-09-11] MED LIST changes: -LEVO750T14 PO; +LEVO75TAB PO
[2024-09-11 10:51] LABS: ALBUMIN 3.6 G/DL (3.2-5.2); ALKALINE PHOSPHATASE 71 U/L (40-129); ALT/SGPT 45 U/L (7.0-40); AST/SGOT 23 U/L (<34); BILIRUBIN,TOTAL 0.6 MG/DL (0.3-1.2); BLOOD UREA NITROGEN 14 MG/DL (9-23); CALCIUM LEVEL 9.4 MG/DL (8.5-10.1); CARBON DIOXIDE LEVEL 29 MMOL/L (20-31); CHLORIDE LEVEL 109 MMOL/L (98-107); CHOLESTEROL LEVEL 210 MG/DL (<200); CHOLESTEROL RISK RATIO 7.16 (<5); CREATININE FOR GFR 1.04 MG/DL (0.70-1.30); GLOMERULAR FILTRATION RATE > 60.0 (>56); GLUCOSE, FASTING 117 MG/DL (60-100); HDL CHOLESTEROL 29.3 MG/DL (>40); LDL CHOLESTEROL 101.9 MG/DL (<100); NON-HDL-C 180.7 MG/DL; SODIUM LEVEL 142 MMOL/L (136-145); TOTAL PROTEIN 6.6 G/DL (5.7-8.2); TRIGLYCERIDES LEVEL 394 MG/DL (<150)
[2024-09-11 10:53] LABS: VITAMIN B12 LEVEL 1851 PG/ML (211-911)
[2024-09-11 11:29] LABS: HEMOGLOBIN A1c 6.3 % (4.0-6.0)
== END ==
LOC: M PLALAB 08:44
PROVIDERS: ATTEND Student in an Organized Health Care Education/Training Program
DX: Z00.00 Encounter for general adult medical examination without abnormal findings (principal)

== ENCOUNTER → 2024-11-25 | Outpatient (REF) | payer OTHER ==
[~2024-11-25] MED LIST changes: -CLOT10TR MT; +CLOT10TR11 MT
[2024-11-25 10:37] LABS: MEAN CORPUSCULAR HGB CONC 34.9 g/dl (32.0-36.5); MEAN CORPUSCULAR VOLUME 88.8 fl (80.0-96.0); PLATELET COUNT, AUTOMATED 164 10^3/uL (150-450); RED BLOOD COUNT 4.84 10^6/uL (4.30-6.10); WHITE BLOOD COUNT 9.4 10^3/uL (4.0-10.0)
[2024-11-25 11:03] LABS: ALBUMIN 4.1 G/DL (3.2-5.2); ALKALINE PHOSPHATASE 63 U/L (40-129); ALT/SGPT 56 U/L (7.0-40); AST/SGOT 36 U/L (<34); BILIRUBIN,DIRECT 0.2 MG/DL (<0.4); BILIRUBIN,TOTAL 0.5 MG/DL (0.3-1.2); BLOOD UREA NITROGEN 20 MG/DL (9-23); CALCIUM LEVEL 9.1 MG/DL (8.5-10.1); CARBON DIOXIDE LEVEL 28 MMOL/L (20-31); CHLORIDE LEVEL 109 MMOL/L (98-107); CHOLESTEROL LEVEL 104 MG/DL (<200); CHOLESTEROL RISK RATIO 4.24 (<5); CREATININE FOR GFR 1.16 MG/DL (0.70-1.30); GLOMERULAR FILTRATION RATE > 60.0 (>56); GLUCOSE, FASTING 96 MG/DL (60-100); HDL CHOLESTEROL 24.5 MG/DL (>40); LDL CHOLESTEROL 24.7 MG/DL (<100); NON-HDL-C 79.5 MG/DL; PHOSPHORUS LEVEL 3.6 MG/DL (2.5-4.9); POTASSIUM SERUM 4.9 MMOL/L (3.5-5.1); SODIUM LEVEL 143 MMOL/L (136-145); TOTAL PROTEIN 6.4 G/DL (5.7-8.2); TRIGLYCERIDES LEVEL 274 MG/DL (<150)
[2024-11-25 11:06] LABS: HEMOGLOBIN A1c 5.6 % (4.0-6.0)
[2024-11-30 15:47] LABS: 25-HYDROXY VITAMIN D2 < 8 pg/mL; 25-HYDROXY VITAMIN D3 20 pg/mL; VITAMIN D 1 25 DIHYDROXY 20 pg/mL (18-72)
== END ==
LOC: M LABDRAWP 10:04
PROVIDERS: ATTEND Student in an Organized Health Care Education/Training Program
DX: Z00.00 Encounter for general adult medical examination without abnormal findings (principal); E11.9 Type 2 diabetes mellitus without complications; E78.5 Hyperlipidemia, unspecified; I10 Essential (primary) hypertension